=== PATIENT | male | born 1965 | race Caucasian/White ===

== ENCOUNTER → 2019-12-10 15:00 | Outpatient (CLI) | payer MEDICARE, MEDICAID, SELFPAY ==
--- NOTE | ~2019-12-10 | XR_ITS ---
. EXAMINATION: XR lumbar spine 6V w bending DATE: 12/10/2019 15:45 INDICATION: Low back pain. TECHNIQUE: 5 views of lumbar spine including flexion and extension views were obtained. COMPARISON: Lumbar spine radiographs 04/15/2016, CT abdomen and pelvis 06/30/2017 FINDINGS: There is 3 degrees levocurvature of thoracolumbar spine. There are changes of posterior fus ion procedure from T12 to L4 with pedicle screws in T12, L1, L3, and L4. There is a chronic compressi on fracture of L2 with strut graft between L1 and L3. Intervertebral disc heights are normal. There i s no abnormal motion between flexion and extension. There are endplate osteophytes at most levels. Th ere is multilevel mild facet joint osteoarthrosis. There is a filter in the inferior vena cava. IMPRESSION: 1. Posterior fusion procedure from T12 to L4 and anterior fusion procedure from L1 to L3. 2. Mild lumbar spondylosis. Reviewed, dictated and finalized at location A. MAKER
--- NOTE | ~2019-12-10 | XR_ITS ---
EXAMINATION: XR thoracic spine 2V EXAM DATE: 12/10/2019 15:45 INDICATION: Thoracic pain. TECHNIQUE: Frontal and lateral projections of the thoracic spine as well as lateral swimmers projecti on of the upper thoracic spine for interpretation. Comparison is made to prior examination from 016. FINDINGS: There is mild mid and lower thoracic disc disease. The vertebral bodies are aligned in the AP dimension. Paraspinal soft tissue is unremarkable. Thoracolumbar fusion hardware. There are no bon y erosions identified. IMPRESSION: Mild mid and lower thoracic disc disease. Reviewed, dictated and finalized at location A. K MAKER
--- NOTE | ~2019-12-10 | XR_ITS ---
EXAMINATION: XR knee RT 2V EXAM DATE: 12/10/2019 15:45 INDICATION: No known recent injury provided at this time. Pain of the knees bilaterally. TECHNIQUE: Right knee frontal and lateral projections. Comparison is made to prior examination from 01/11/2018. FINDINGS: There is mild right patellofemoral compartment primary osteoarthritis. There are no acute f ractures or dislocations identified. There is no subcutaneous gas. The soft tissue is unremarkable. There are no radiopaque foreign bodies. No joint effusion. IMPRESSION: Mild right patellofemoral compartment osteoarthritis. Reviewed, dictated and finalized at location A. RD PRESSMAN
--- NOTE | ~2019-12-10 | XR_ITS ---
EXAMINATION: XR knee LT 2V EXAM DATE: 12/10/2019 15:45 INDICATION: No known recent injury provided at this time. Pain of the left knee. TECHNIQUE: Left knee frontal and lateral projections. There is no prior study for comparison. FINDINGS: There is minimal tricompartmental left knee primary osteoarthritis. Proximal tibial bone i sland. There are no acute fractures or dislocations identified. There is no subcutaneous gas. The s oft tissue is unremarkable. There are no radiopaque foreign bodies. No joint effusion. IMPRESSION: Minimal left knee osteoarthritis. Reviewed, dictated and finalized at location A. OROLOGICAL OBSERVER
== END ==
PROVIDERS: PCP Internal Medicine; Visit Provider Nurse Practitioner Family
DX: M47.896 Other spondylosis, lumbar region (principal); Z98.1 Arthrodesis status; M51.24 Other intervertebral disc displacement, thoracic region; M17.0 Bilateral primary osteoarthritis of knee
CPT/HCPCS: 72070; 72114; 73560

== ENCOUNTER 2019-12-19 13:30 | Emergency (ER) | payer MEDICARE, MEDICAID, SELFPAY ==
[2019-12-19 14:36] VITALS: BP 154/86; PULSE 73; RESP 20; TEMP 36.5; O2SAT 98
--- NOTE | 2019-12-19 14:48 | ED.GENADULT ---
HPI - General Adult General Stated complaint: pain in left side of face Time Seen by Provider: 12/19/19 14:48 Source: patient and RN notes reviewed History of Present Illness HPI narrative: Patient is a 54-year-old male that presents the urgent care with complaints of left facial and neck pain. Patient states that he has had it for approximately 10 days. Patient states he did see his PCP who initially thought he had the flu due to some body aches. Patient states his flu was negative. Patient was then placed on antibiotics for strep throat in which he did not have. Patient states he did complete the antibiotics. Patient denies of any known rash but states that he does feel that his skin is itchy at times . Patient states that he feels that someone slapped him across the face . Patient denies any chest pain or shortness of breath. Denies of any radiation of the pain down the arm or back. No other acute complaints. No acute distress noted. Patient read the plan of care. Related Data Home Medications Medication Instructions Recorded Confirmed albuterol sulfate 90 mcg/actuation 2 puff INHALATION Q4-6H PRN gm 10/25/19 10/25/19 aerosol inhaler aspirin 81 mg PO DAILY 10/25/19 10/25/19 atorvastatin 80 mg tablet 80 mg PO DAILY 10/25/19 10/25/19 budesonide-formoterol HFA 160 2 puff INHALATION Q12H 10/25/19 10/25/19 mcg-4.5 mcg/actuation aerosol inhaler cyclobenzaprine 10 mg tablet 10 mg PO HS PRN 10/25/19 10/25/19 doxazosin 4 mg tablet 4 mg PO HS 10/25/19 10/25/19 fenofibrate nanocrystallized 145 mg PO DAILY 10/25/19 10/25/19 hydrocodone 5 mg-acetaminophen 325 1 tablet PO Q8H PRN 10/25/19 10/25/19 mg tablet icosapent ethyl 1 gram capsule 2 gm PO BID 10/25/19 10/25/19 insulin aspart U-100 100 unit/mL See Rx Instructions .ROUTE 10/25/19 10/25/19 (3 mL) subcutaneous pen .COMPLEX ml lisinopril 40 mg tablet 40 mg PO BID 10/25/19 10/25/19 spironolactone 25 mg PO DAILY 10/25/19 10/25/19 testosterone cypionate 200 mg/mL 200 mg IM WEEKLY ml 10/25/19 10/25/19 intramuscular oil ticagrelor 90 mg tablet 90 mg PO Q12H 10/25/19 10/25/19 liraglutide 0.6 mg/0.1 mL (18 mg/3 1.8 mg SUBCUT DAILY 11/05/19 mL) subcutaneous pen injector Allergies Allergy/AdvReac Type Severity Reaction Status Date / Time No Known Allergies Allergy Unknown Verified 12/19/19 15:03 Review of Systems Review of Systems: Narrative: CONSTITUTIONAL: Denies fever, chills, or sweats. EYES: Denies visual changes, redness, or discharge. ENT: Denies rhinorrhea, congestion, sore throat, or otalgia. CARDIOVASCULAR: Denies chest pain, palpitations, or edema. RESPIRATORY: Denies cough or dyspnea. GASTROINTESTINAL: Denies abdominal pain, nausea, vomiting, or diarrhea. GENITOURINARY: Denies dysuria or hematuria. SKIN: Denies rash or itching. MUSCULOSKELETAL: Denies back pain, joint pain, or myalgia. NEUROLOGIC: Reports of burning, itching, pain radiating from the left neck to the left face All other systems reviewed are negative, except as documented in HPI. PENDING SALE TO [facility] Past Medical History Medical History (Updated 12/19/19 @ 15:19 by FLEX Fuentes) Anxiety Bronchitis CAD (coronary artery disease) CHF (congestive heart failure) Chronic back pain COPD (chronic obstructive pulmonary disease) CVA (cerebral vascular accident) Depression Diverticulitis DVT (deep venous thrombosis) Emphysema of lung Heart attack x6 History of angina HTN (hypertension) Hyperlipidemia IDDM (insulin dependent diabetes mellitus) Kidney stones Mitral valve prolapse Pneumonia Presence of IVC filter Seizures Sleep apnea UTI (urinary tract infection) Surgical History Surgical History (Updated 10/25/19 @ 15:26 by Rupal Christianson) History of angioplasty History of back surgery L1 replacement, spinal fusion History of cardiac catheterization History of coronary artery stent placement History of knee surgery History of rhinoplasty History of shoulder surgery History o
--- NOTE | 2019-12-19 15:17 | ECG_ITS ---
Measurements Intervals [place] Rate: 74 P: 66 SD: 211 QRS: 37 QRSD: 117 T: 71 QT: 387 QTc: 430 Interpretive Statements SINUS RHYTHM WITH SINUS ARRHYTHMIA WITH FIRST DEGREE AV BLOCK POSSIBLE LEFT ATRIAL ENLARGEMENT INTRAVENTRICULAR CONDUCTION DELAY CANNOT RULE OUT SEPTAL INFARCT, AGE INDETERMINATE ABNORMAL ECG Electronically Signed On 12-19-2019 15:53:48 CAR TOP BOLTER by Satinder Eason D.O.
== END 2019-12-19 15:20 | disposition left against medical advice (07) ==
PROVIDERS: Emergency Provider Nurse Practitioner Family; PCP Internal Medicine
DX: G50.0 Trigeminal neuralgia (principal); F17.210 Nicotine dependence, cigarettes, uncomplicated; I11.0 Hypertensive heart disease with heart failure; I50.9 Heart failure, unspecified; J44.9 Chronic obstructive pulmonary disease, unspecified; Z86.73 Personal history of transient ischemic attack (TIA), and cerebral infarction without residual deficits; Z86.718 Personal history of other venous thrombosis and embolism; I25.110 Atherosclerotic heart disease of native coronary artery with unstable angina pectoris; I25.2 Old myocardial infarction; E78.5 Hyperlipidemia, unspecified; I34.1 Nonrheumatic mitral (valve) prolapse; G47.30 Sleep apnea, unspecified; Z95.5 Presence of coronary angioplasty implant and graft; I44.0 Atrioventricular block, first degree; R94.31 Abnormal electrocardiogram [ECG] [EKG]
CPT/HCPCS: 93005; 99213; G0463

== ENCOUNTER 2020-04-20 19:07 | Emergency (ER) | payer MEDICARE, MEDICAID, SELFPAY ==
[2020-04-20 19:12] VITALS: BP 121/80; PULSE 83; RESP 20; TEMP 36.6; O2SAT 98
--- NOTE | 2020-04-20 19:33 | ED.SKABFB ---
HPI - Skin/Abscess/Foreign Bdy General Chief complaint: Skin/Abscess/Foreign Body Stated complaint: spider bite on right wrist Time Seen by Provider: 04/20/20 19:26 Source: patient and RN notes reviewed Mode of arrival: ambulatory Limitations: no limitations History of Present Illness HPI narrative: Patient presents today complaining of a 4-day history of a bump to his right wrist, Possibly an insect bite. Yesterday it started causing some pain and itching in the dorsum of the right wrist. He has tried Tylenol and hydrocortisone without relief. Currently rates his pain 04/16. History of type 2 diabetes, COPD Related Data Home Medications Medication Instructions Recorded Confirmed albuterol sulfate 90 mcg/actuation 2 puff INHALATION Q4-6H PRN gm 10/25/19 04/20/20 aerosol inhaler aspirin 81 mg PO DAILY 10/25/19 04/20/20 fenofibrate nanocrystallized 145 mg PO DAILY 10/25/19 04/20/20 insulin aspart U-100 100 unit/mL See Rx Instructions .ROUTE 10/25/19 04/20/20 (3 mL) subcutaneous pen .COMPLEX ml lisinopril 40 mg tablet 40 mg PO BID 10/25/19 12/19/19 spironolactone 25 mg PO DAILY 10/25/19 12/19/19 testosterone cypionate 200 mg/mL 200 mg IM WEEKLY ml 10/25/19 12/19/19 intramuscular oil liraglutide 0.6 mg/0.1 mL (18 mg/3 1.2 mg SUBCUT DAILY 11/05/19 12/19/19 mL) subcutaneous pen injector budesonide-formoterol 2 puff INHALATION Q12H 04/20/20 04/20/20 cyclobenzaprine 10 mg PO HS 04/20/20 04/20/20 dapagliflozin [Farxiga] 10 mg PO DAILY 04/20/20 04/20/20 insulin glargine U-300 conc 100 unit SUBCUT DAILY 04/20/20 04/20/20 nitroglycerin 0.4 mg SUBLINGUAL Q5-15M PRN 04/20/20 04/20/20 sitagliptin 100 mg PO DAILY 04/20/20 04/20/20 ticagrelor 90 mg PO Q12H 04/20/20 04/20/20 Allergies Allergy/AdvReac Type Severity Reaction Status Date / Time No Known Allergies Allergy Unknown Verified 04/20/20 19:28 Review of Systems Review of Systems: Narrative: CONSTITUTIONAL: Denies body aches, fever, chills, or sweats. EYES: Denies visual changes, redness, or discharge. ENT: Denies rhinorrhea, congestion, sore throat, or otalgia. CARDIOVASCULAR: Denies chest pain, palpitations, or edema. RESPIRATORY: Denies cough or dyspnea. GASTROINTESTINAL: Denies abdominal pain, nausea, vomiting, or diarrhea. GENITOURINARY: Denies dysuria or hematuria. SKIN: Denies rash, itching. +Bump to right wrist MUSCULOSKELETAL: Denies back pain, joint pain, or myalgia. NEUROLOGIC: Denies headache, numbness, tingling, or weakness. PSYCH: Denies depression or anxiety. [facility] Past Medical History Medical History (Updated 04/20/20 @ 19:34 by Odilia Norris, [facility], ) Anxiety Bronchitis CAD (coronary artery disease) CHF (congestive heart failure) Chronic back pain COPD (chronic obstructive pulmonary disease) CVA (cerebral vascular accident) Depression Diverticulitis DVT (deep venous thrombosis) Emphysema of lung Heart attack x6 History of angina HTN (hypertension) Hyperlipidemia IDDM (insulin dependent diabetes mellitus) Kidney stones Mitral valve prolapse Pneumonia Presence of IVC filter Seizures Sleep apnea UTI (urinary tract infection) Surgical History Surgical History (Updated 10/25/19 @ 15:26 by Rupal Christianson) History of angioplasty History of back surgery L1 replacement, spinal fusion History of cardiac catheterization History of coronary artery stent placement History of knee surgery History of rhinoplasty History of shoulder surgery History of vascular surgery Social History Social History (Updated 10/25/19 @ 15:27 by Rupal Christianson) Smoking packs per day: 1 Smoking cigarettes per day: 20.0 Years smoked: 40 Smoking pack-years: 40.00 Smoking status: Current every day smoker Tobacco type: cigarettes Second hand tobacco smoke exposure: Yes Smoking end date: 02/26/19 Alcohol intake: never Substance use: current Substance use type: marijuana Other substance usage details: MEDICAL MARIJ[employer]NA CARD Sanya
== END 2020-04-20 19:36 | disposition home or self-care (01) ==
PROVIDERS: Emergency Provider Nurse Practitioner; PCP Internal Medicine
DX: S60.861A Insect bite (nonvenomous) of right wrist, initial encounter (principal); E11.9 Type 2 diabetes mellitus without complications; Z79.4 Long term (current) use of insulin; L08.9 Local infection of the skin and subcutaneous tissue, unspecified; W57.XXXA Bitten or stung by nonvenomous insect and other nonvenomous arthropods, initial encounter; F17.210 Nicotine dependence, cigarettes, uncomplicated; F12.90 Cannabis use, unspecified, uncomplicated; I25.10 Atherosclerotic heart disease of native coronary artery without angina pectoris; I11.0 Hypertensive heart disease with heart failure; I50.9 Heart failure, unspecified; I25.2 Old myocardial infarction; Z86.718 Personal history of other venous thrombosis and embolism
CPT/HCPCS: 99213; G0463

== ENCOUNTER 2020-05-13 16:24 | Outpatient (CLI) | payer MEDICARE, MEDICAID, SELFPAY ==
[2020-05-13 16:44] LABS: Basophils Absolute Auto 0.1 K/mm3 (0.0-0.1); Basophils Percent Auto 0.9 % (0.2-1.2); Eosinophils Absolute Auto 0.3 K/mm3 (0-0.3); Eosinophils Percent Auto 3.4 % (0-4.4); Hematocrit 42.5 % (42.0-52.0); Hemoglobin 13.9 g/dL (14.0-18.0); Immature Granulocyte Absolute 0.08 K/mm3 (0.00-0.031); Immature Granulocyte Percent A 0.9 % (0-0.5); Mean Corpuscular HGB Conc 32.7 g/dl (32-36); Mean Corpuscular Hemoglobin 27.3 pg (26-34); Mean Corpuscular Volume 83.5 fl (80-100); Mean Platelet Volume 9.3 fl (7.4-10.4); Monocytes Absolute Auto 0.7 K/mm3 (0.1-0.6); Monocytes Percent Auto 8.8 % (2.6-8.5); Neutrophils Absolute Auto 5.1 K/mm3 (1.3-6.7); Platelet Count Result 272 k/mm3 (150-375); Red Blood Count 5.09 M/mm3 (4.6-6.20); Red Cell Distribution Width 14.1 % (11.5-14.5); White Blood Count 8.5 K/mm3 (4.5-10.0)
[2020-05-13 16:56] LABS: Alanine Aminotransferase 21 U/L (4-50); Albumin Level 4.3 g/dL (3.5-5.1); Alkaline Phosphatase 47 U/L (38-126); Aspartate Amino Transferase 18 U/L (17-59); Bilirubin,Total 0.3 mg/dL (0.2-1.3); Blood Urea Nitrogen 29 mg/dL (9-20); Calcium 9.6 mg/dL (8.4-10.2); Carbon Dioxide 22 mmol/L (22-30); Chloride 106 mmol/L (98-107); Cholesterol 137 mg/dL (0-200); Estimated Glomerular Filt Rate 53; Glucose 208 mg/dL (75-110); HDL Direct 23 mg/dL; Potassium 4.7 mmol/L (3.4-5.0); Sodium 136 mmol/L (137-145); Triglycerides 505 mg/dL (<150)
[2020-05-13 16:58] LABS: Hemoglobin A1C 8.9 % (<5.7)
[2020-05-13 17:07] LABS: LDL Cholesterol Direct 55 mg/dL
[2020-05-13 17:14] LABS: Creatinine Urine 57.4 mg/dL
[2020-05-13 17:20] LABS: MALB Creatinine Ratio 40.8 mg/g (0-30); Microalbumin Urine Random 23.4 mg/L (0-16.7)
[2020-05-13 17:27] LABS: Thyroid Stimulating Hormone 0.471 uIU/mL (0.465-4.680)
== END 2020-05-13 16:25 | disposition home or self-care (01) ==
PROVIDERS: PCP Internal Medicine; Visit Provider Internal Medicine
DX: E11.42 Type 2 diabetes mellitus with diabetic polyneuropathy (principal); E78.5 Hyperlipidemia, unspecified; I10 Essential (primary) hypertension; Z79.4 Long term (current) use of insulin
CPT/HCPCS: 36415; 80053; 80061; 82043; 83036; 84443; 85025

== ENCOUNTER 2020-08-13 01:13 | Outpatient (CLI) | payer MEDICARE, SELFPAY ==
[2020-08-13 19:19] LABS: SARS-CoV-2 RNA PCR Negative
== END 2020-08-13 01:14 | disposition home or self-care (01) ==
LOC: ANHCOVIDDT 01:13
PROVIDERS: PCP Internal Medicine; Visit Provider Internal Medicine Gastroenterology
DX: Z01.812 Encounter for preprocedural laboratory examination (principal); Z11.59 Encounter for screening for other viral diseases
CPT/HCPCS: 87635; C9803; U0003

== ENCOUNTER 2020-08-15 01:07 | Day surgery (SDC) | payer MEDICARE, MEDICAID, SELFPAY ==
[2020-08-07 15:18] VITALS: BMI 32.1
[2020-08-15 12:37] VITALS: BP 122/80; PULSE 66; RESP 16; TEMP 36; O2SAT 99
[2020-08-15] MEDS: LACTATED RINGERS 1,000 ML 150 ML IV CONT (12:51)
--- NOTE | 2020-08-15 13:35 | WPDANESEPPF ---
Anes - Initial Pre Proc Eval Procedure: Operation Date: 08/15/20 13:45 Proposed Procedures p Esophagogastroduodenoscopy & Screening Colonoscopy - Abdulaziz Manzanares MD Date/Time: 08/15/20 13:35 Surgeon: Abdulaziz Manzanares MD Pre Op Diagnosis: Neoplasm Screening/ Gerd Patient Data Age: 55 Gender: M Height: 6 ft 2 in Weight: 113.6 kg Last Vital Signs Temp 96.8 F L 08/15/20 12:37 Pulse 66 08/15/20 12:37 Resp 16 08/15/20 12:37 BP 122/80 08/15/20 12:37 Pulse Ox 99 08/15/20 12:37 Allergies Allergy/AdvReac Type Severity Reaction Status Date / Time No Known Allergies Allergy Unknown Verified 08/15/20 12:36 Home Medications Medication Instructions Recorded Confirmed Type albuterol sulfate 90 mcg/actuation 2 puff INHALATION Q4-6H PRN gm 10/25/19 08/07/20 History aerosol inhaler aspirin 81 mg PO DAILY 10/25/19 08/07/20 History fenofibrate nanocrystallized 145 mg PO DAILY 10/25/19 08/07/20 History spironolactone 25 mg PO DAILY 10/25/19 08/07/20 History testosterone cypionate 200 mg/mL 100 mg IM WEEKLY ml 10/25/19 08/07/20 History intramuscular oil atorvastatin 80 mg tablet 80 mg PO DAILY #90 tablet 04/01/20 08/07/20 Rx doxazosin 4 mg tablet 4 mg PO HS #90 tablet 04/07/20 08/07/20 Rx cyclobenzaprine 10 mg PO HS 04/20/20 08/07/20 History nitroglycerin 0.4 mg SUBLINGUAL Q5-15M PRN 04/20/20 08/07/20 History ticagrelor 90 mg PO Q12H 04/20/20 08/07/20 History carvedilol 25 mg tablet 25 mg PO Q12H #180 tablet 05/16/20 08/07/20 Rx lisinopril 40 mg tablet 40 mg PO BID #180 tablet 05/23/20 08/07/20 Rx pregabalin 150 mg capsule 150 mg PO TID #270 cap 05/23/20 08/07/20 Rx insulin aspart U-100 100 unit/mL See Rx Instructions .ROUTE 05/30/20 08/07/20 Rx (3 mL) subcutaneous pen .COMPLEX #15 ml insulin glargine U-300 conc 300 100 unit SUBCUT DAILY #30 ml 06/30/20 08/07/20 Rx unit/mL (1.5 mL) subcutaneous pen semaglutide 7 mg tablet 7 mg PO DAILY #90 tablet 07/01/20 08/07/20 Rx amlodipine 10 mg tablet 10 mg PO DAILY #90 tablet 07/24/20 08/07/20 Rx icosapent ethyl 1 gram capsule 2 gm PO BID #360 cap 07/24/20 08/07/20 Rx metformin 1,000 mg tablet 1,000 mg PO BID #180 tablet 07/24/20 08/07/20 Rx venlafaxine 75 mg capsule,extended 75 mg PO DAILY #90 cap 07/24/20 08/07/20 Rx release 24 hr budesonide-formoterol HFA 160 See Rx Instructions .ROUTE 07/29/20 08/07/20 Rx mcg-4.5 mcg/actuation aerosol .COMPLEX #10.2 gm inhaler dapagliflozin 10 mg tablet See Rx Instructions .ROUTE 08/01/20 08/07/20 Rx .COMPLEX #90 tablet peg 3350-electrolytes 236 240 ml PO Q10M #4000 ml 08/01/20 08/07/20 Rx gram-22.74 gram-6.74 gram-5.86 gram solution omeprazole 40 mg capsule,delayed 40 mg PO DAILY #90 cap 08/11/20 Rx release Patient hx anesthesia problems: none Family hx anesthesia problems: none PMFSH Past Medical History Medical History Anxiety Bronchitis CAD (coronary artery disease) CHF (congestive heart failure) Chronic back pain COPD (chronic obstructive pulmonary disease) CVA (cerebral vascular accident) Depression Diverticulitis DVT (deep venous thrombosis) Emphysema of lung Heart attack x6 History of angina HTN (hypertension) Hyperlipidemia IDDM (insulin dependent diabetes mellitus) Kidney stones Mitral valve prolapse Pneumonia Presence of IVC filter Seizures Sleep apnea UTI (urinary tract infection) Surgical History Surgical History History of angioplasty History of back surgery L1 replacement, spinal fusion History of cardiac catheterization History of coronary artery stent placement History of knee surgery History of rhinoplasty History of shoulder surgery History of vascular surgery Family History Family History Mother Cerebrovascular accident, Onset Age: 68 Family history
--- NOTE | 2020-08-15 13:54 | PM.HPGS ---
History of Present Illness History of Present Illness Consent: Risks, benefits, and alternatives have been discussed and questions answered. Patient agrees to proceed with procedure. Chief complaint: Neoplasm Screening/ Gerd Narrative: Bruce Peralta is a 55 year old male with gerd, burping but improved after started using honey. Also diarrhea and needs screening colonoscopy. Review of Systems Constitutional: Constitutional: Denies headache(s) and Denies weakness Eyes: Eyes: Denies blurry vision ENT: Reports Normal hearing present, Denies headache(s) and Denies neck pain Cardiovascular: Cardiovascular: Denies chest pain and Denies dyspnea Respiratory: Respiratory: Denies dyspnea Gastrointestinal: Gastrointestinal: Reports no additional gastrointestinal complaints Genitourinary: Genitourinary: Denies dysuria Musculoskeletal: Musculoskeletal: Denies neck pain Integumentary/Breasts: Skin/Breast: Denies dry skin Neurologic: Reports Normal hearing present, Denies headache(s) and Denies weakness Psychiatric: Psychiatric: Denies anxiety Endocrine: Endocrine: Denies change in body appearance Hematologic/Lymphatic: Hematologic/Lymphatic: Denies easy bleeding Allergic/Immunologic: Allergic/Immunologic: Denies urticaria PMFSH Past Medical History Medical History Anxiety Bronchitis CAD (coronary artery disease) CHF (congestive heart failure) Chronic back pain COPD (chronic obstructive pulmonary disease) CVA (cerebral vascular accident) Depression Diverticulitis DVT (deep venous thrombosis) Emphysema of lung Heart attack x6 History of angina HTN (hypertension) Hyperlipidemia IDDM (insulin dependent diabetes mellitus) Kidney stones Mitral valve prolapse Pneumonia Presence of IVC filter Seizures Sleep apnea UTI (urinary tract infection) Surgical History Surgical History History of angioplasty History of back surgery L1 replacement, spinal fusion History of cardiac catheterization History of coronary artery stent placement History of knee surgery History of rhinoplasty History of shoulder surgery History of vascular surgery Family History Family History Mother Cerebrovascular accident, Onset Age: 68 Family history of mental disorder Depression Sibling Family history of diabetes mellitus in first degree relative Family history of obesity Cerebrovascular accident Family history of malignant neoplasm Family history of heart disease in male family member before age 55 Carcinoma of colon Family history of lung cancer Father Family history of heart disease in male family member before age 55 Family history of migraine headaches Cerebrovascular accident Family history of chronic obstructive pulmonary disease Family history of congestive heart failure Acute myocardial infarction, Onset Age: 69 Other Diabetes mellitus Family history of arthritis Family history of cardiovascular disease Family history of glaucoma Family history of lung disease Family history of osteoporosis Hypertension Social History Social History Smoking packs per day: 1 Smoking cigarettes per day: 20.0 Years smoked: 40 Smoking pack-years: 40.00 Smoking status: Current every day smoker Tobacco type: cigarettes Second hand tobacco smoke exposure: Yes Smoking end date: 02/26/19 Alcohol intake: former Substance use: current Substance use type: marijuana Other substance usage details: SMOKES CIGARETTES AND CANNABIS DAILY. Living arrangements: with family Gender identity (if verbalized by the patient): Male Sexual Orientation (if Verbalized by the Patient): Straight or Heterosexual Spiritual care concerns: No Agree to blood products: Yes
[2020-08-15 14:34] VITALS: BP 131/85; PULSE 67; RESP 19; O2SAT 99
[2020-08-15 14:38] LABS: Glucose Point of Care 98 (65-105)
[2020-08-15 14:44] VITALS: BP 136/91; PULSE 59; RESP 18; O2SAT 100
[2020-08-15 14:54] VITALS: BP 151/92; PULSE 56; RESP 19; O2SAT 100
== END 2020-08-15 15:08 | disposition home or self-care (01) ==
PROVIDERS: PCP Internal Medicine; Visit Provider Internal Medicine Gastroenterology
PROC: 0DJ08ZZ Inspection of Upper Intestinal Tract, Via Natural or Artificial Opening Endoscopic (ICD-10-PCS; CPT 43235; principal; 2020-08-15 13:45)
DX: Z12.11 Encounter for screening for malignant neoplasm of colon (principal); K57.30 Diverticulosis of large intestine without perforation or abscess without bleeding; K64.8 Other hemorrhoids; K21.9 Gastro-esophageal reflux disease without esophagitis; K30 Functional dyspepsia; I11.0 Hypertensive heart disease with heart failure; I50.9 Heart failure, unspecified; I25.2 Old myocardial infarction; E78.5 Hyperlipidemia, unspecified; E11.9 Type 2 diabetes mellitus without complications; I34.1 Nonrheumatic mitral (valve) prolapse; F41.8 Other specified anxiety disorders; I25.10 Atherosclerotic heart disease of native coronary artery without angina pectoris; G47.30 Sleep apnea, unspecified; J44.9 Chronic obstructive pulmonary disease, unspecified; Z79.4 Long term (current) use of insulin; Z79.82 Long term (current) use of aspirin; Z79.84 Long term (current) use of oral hypoglycemic drugs; Z86.718 Personal history of other venous thrombosis and embolism; Z95.5 Presence of coronary angioplasty implant and graft; F17.210 Nicotine dependence, cigarettes, uncomplicated; F12.90 Cannabis use, unspecified, uncomplicated; E66.9 Obesity, unspecified; Z68.32 Body mass index [BMI] 32.0-32.9, adult
CPT/HCPCS: 45380; 43239; 88305; J2704; J7120

== ENCOUNTER 2020-09-16 14:33 | Outpatient (CLI) | payer MEDICARE, MEDICAID, SELFPAY ==
--- NOTE | ~2020-09-16 | CT_ITS ---
EXAMINATION:CT lung screening DATE: 09/16/2020 15:35 INDICATION: Personal history of tobacco dependence. Current smoker with 30 pack year history. TECHNIQUE: Computed tomography (CT) of the chest was performed without intravenous contrast. Automate d exposure control and iterative reconstruction technique were employed. The dose-length product (DLP ) was 288.58 mGy-cm. COMPARISON: Chest CT 01/31/2015 FINDINGS: There is mild atelectasis bilaterally. No pleural effusion. The heart size is normal. No pe ricardial effusion. There are coronary artery calcifications. There is a filter in the inferior vena cava. There are changes of posterior fusion procedure in thoracolumbar spine. There is mild thoracic spondylosis. IMPRESSION: 1. Lung-RADS category 1: Negative. Continue annual screening with noncontrast low-dose chest CT in 12 months. Reviewed, dictated and finalized at location B. RTISING AGENCY MANAGER IMPRESSION: 1. Lung-RADS category 1: Negative. Continue annual screening with noncontrast l ow-dose chest CT in 12 months.
== END 2020-09-16 14:34 | disposition home or self-care (01) ==
PROVIDERS: PCP Internal Medicine; Visit Provider Internal Medicine
DX: Z12.2 Encounter for screening for malignant neoplasm of respiratory organs (principal); Z87.891 Personal history of nicotine dependence
CPT/HCPCS: G0297

== ENCOUNTER 2020-10-12 02:19 | Emergency (ER) | payer MEDICARE, MEDICAID, SELFPAY ==
--- NOTE | ~2020-10-12 | XR_ITS ---
XR chest 1V portable 10/12/2020 03:24 Indication: Shortness of breath Procedure: AP portable chest Comparison: Comparison to multiple prior studies sequentially, with oldest reviewed study dated 03/25. Findings: Heart size normal. Right lung clear. Left basilar atelectasis. No focal pneumonia, edema, p leural effusion or pneumothorax. No acute osseous abnormality. Impression: 1: Left basilar atelectasis. No significant change. Reviewed, dictated and finalized at location A. TENANCE MECHANIC TECHNICIAN Impression: 1: Left basilar atelectasis. No significant change.
[2020-10-12 02:20] VITALS: BP 150/81; PULSE 67; RESP 18; TEMP 35.8; O2SAT 97
--- NOTE | 2020-10-12 02:34 | ED.URI ---
HPI - URI/Sore Throat General Chief Complaint: Upper Respiratory Infection Stated Complaint: bronchitis or pneumonia Time Seen by Provider: 10/12/20 02:25 History of Present Illness HPI Narrative: 55 yo male w/ CAD, HTn, DM presnets to the ED with 5 days of cough, SOB, and pleuritic chest pain. He has sharp pain with coughing and breathing. No nausea, vomiting, fever. He does not believe that he has been exposed to COVID-19. Related Data Home Medications Medication Instructions Recorded Confirmed aspirin 81 mg PO DAILY 10/25/19 09/05/20 fenofibrate nanocrystallized 145 mg PO DAILY 10/25/19 09/05/20 spironolactone 25 mg PO DAILY 10/25/19 09/05/20 testosterone cypionate 200 mg/mL 100 mg IM WEEKLY ml 10/25/19 09/05/20 intramuscular oil cyclobenzaprine 10 mg PO HS 04/20/20 09/05/20 nitroglycerin 0.4 mg SUBLINGUAL Q5-15M PRN 04/20/20 09/05/20 ticagrelor 90 mg PO Q12H 04/20/20 09/05/20 Allergies Allergy/AdvReac Type Severity Reaction Status Date / Time No Known Allergies Allergy Unknown Verified 10/12/20 02:34 Review of Systems Review of Systems: All systems reviewed & are unremarkable except as noted in HPI and below Constitutional: Constitutional: Denies chills and Denies fever(s) ENT: Denies sore throat Cardiovascular: Cardiovascular: Reports chest pain and Denies radiating jaw, neck or arm pain Respiratory: Respiratory: Reports cough, Reports dyspnea and Reports wheezing Gastrointestinal: Gastrointestinal: Denies abdominal pain, Denies nausea and Denies vomiting Genitourinary: Genitourinary: Denies dysuria Musculoskeletal: Musculoskeletal: Denies back pain Neurologic: Denies dizziness and Denies weakness Psychiatric: Psychiatric: Reports anxiety PMFSH Past Medical History Medical History Anxiety Bronchitis CAD (coronary artery disease) CHF (congestive heart failure) Chronic back pain COPD (chronic obstructive pulmonary disease) CVA (cerebral vascular accident) Depression Diverticulitis DVT (deep venous thrombosis) Emphysema of lung Heart attack x6 History of angina HTN (hypertension) Hyperlipidemia IDDM (insulin dependent diabetes mellitus) Kidney stones Mitral valve prolapse Pneumonia Presence of IVC filter Seizures Sleep apnea UTI (urinary tract infection) Surgical History Surgical History History of angioplasty History of back surgery L1 replacement, spinal fusion History of cardiac catheterization History of coronary artery stent placement History of knee surgery History of rhinoplasty History of shoulder surgery History of vascular surgery Family History Family History Mother Cerebrovascular accident, Onset Age: 68 Family history of mental disorder Depression Sibling Family history of diabetes mellitus in first degree relative Family history of obesity Cerebrovascular accident Family history of malignant neoplasm Family history of heart disease in male family member before age 55 Carcinoma of colon Family history of lung cancer Father Family history of heart disease in male family member before age 55 Family history of migraine headaches Cerebrovascular accident Family history of chronic obstructive pulmonary disease Family history of congestive heart failure Acute myocardial infarction, Onset Age: 69 Other Diabetes mellitus Family history of arthritis Family history of cardiovascular disease Family history of glaucoma Family history of lung disease Family history of osteoporosis Hypertension Social History Social History Smoking packs per day: 1 Smoking cigarettes per day: 20.0 Years smoked: 40 Smoking pack-years: 40.00 Smoking status: Current every day smoker Tobacco type: cigarett
[2020-10-12 04:07] LABS: Anion Gap 12 mmol/L (8-16); Blood Urea Nitrogen 28 mg/dL (9-20); Calcium 8.8 mg/dL (8.4-10.2); Carbon Dioxide 21 mmol/L (22-30); Chloride 102 mmol/L (98-107); Estimated Glomerular Filt Rate > 60; Glucose 279 mg/dL (75-110); Potassium 4.2 mmol/L (3.4-5.0); Sodium 135 mmol/L (137-145)
[2020-10-12 04:17] LABS: Basophils Absolute Auto 0.1 K/mm3 (0.0-0.1); Basophils Percent Auto 1.1 % (0.2-1.2); Eosinophils Absolute Auto 0.3 K/mm3 (0-0.3); Eosinophils Percent Auto 4.1 % (0-4.4); Hematocrit 43.2 % (42.0-52.0); Hemoglobin 14.1 g/dL (14.0-18.0); Immature Granulocyte Absolute 0.11 K/mm3 (0.00-0.031); Immature Granulocyte Percent A 1.4 % (0-0.5); Lymphocytes Absolute Auto 2.87 K/mm3 (0.9-3.2); Lymphocytes Percent Auto 36.4 % (18.3-44.2); Mean Corpuscular HGB Conc 32.6 g/dl (32-36); Mean Corpuscular Hemoglobin 27.3 pg (26-34); Mean Corpuscular Volume 83.7 fl (80-100); Mean Platelet Volume 9.7 fl (7.4-10.4); Monocytes Absolute Auto 0.9 K/mm3 (0.1-0.6); Monocytes Percent Auto 11.8 % (2.6-8.5); Neutrophils Absolute Auto 3.6 K/mm3 (1.3-6.7); Neutrophils Percent Auto 45.2 % (45.5-73.1); Platelet Count Result 251 k/mm3 (150-375); Red Blood Count 5.16 M/mm3 (4.6-6.20); White Blood Count 7.9 K/mm3 (4.5-10.0)
[2020-10-12] MEDS: predniSONE 20 MG TABLET 60 MG PO (05:30)
[2020-10-12 06:08] VITALS: BP 128/72; PULSE 72; RESP 18; O2SAT 99
[2020-10-13 18:52] LABS: SARS-CoV-2 RNA PCR Negative
== END 2020-10-12 06:09 | disposition home or self-care (01) ==
PROVIDERS: Emergency Provider Emergency Medicine; PCP Internal Medicine
DX: J40 Bronchitis, not specified as acute or chronic (principal); Z20.828 Contact with and (suspected) exposure to other viral communicable diseases; I25.10 Atherosclerotic heart disease of native coronary artery without angina pectoris; I10 Essential (primary) hypertension; E78.5 Hyperlipidemia, unspecified; E11.9 Type 2 diabetes mellitus without complications; I34.1 Nonrheumatic mitral (valve) prolapse; I25.2 Old myocardial infarction; J43.9 Emphysema, unspecified; G47.30 Sleep apnea, unspecified; Z86.73 Personal history of transient ischemic attack (TIA), and cerebral infarction without residual deficits; Z86.718 Personal history of other venous thrombosis and embolism; Z87.440 Personal history of urinary (tract) infections; Z87.442 Personal history of urinary calculi; Z79.82 Long term (current) use of aspirin; Z95.5 Presence of coronary angioplasty implant and graft; F17.210 Nicotine dependence, cigarettes, uncomplicated; Z98.1 Arthrodesis status; Z79.02 Long term (current) use of antithrombotics/antiplatelets
CPT/HCPCS: 36415; 71045; 80048; 85025; 87635; 99283; C9803; J7512; U0003

== ENCOUNTER 2020-12-05 14:26 | Outpatient (CLI) | payer MEDICARE, MEDICAID, SELFPAY ==
[2020-12-05 14:48] LABS: Basophils Absolute Auto 0.1 K/mm3 (0.0-0.1); Eosinophils Absolute Auto 0.4 K/mm3 (0-0.3); Hematocrit 45.1 % (42.0-52.0); Hemoglobin 15.1 g/dL (14.0-18.0); Immature Granulocyte Absolute 0.18 K/mm3 (0.00-0.031); Immature Granulocyte Percent A 1.7 % (0-0.5); Lymphocytes Absolute Auto 2.85 K/mm3 (0.9-3.2); Lymphocytes Percent Auto 27.5 % (18.3-44.2); Mean Corpuscular HGB Conc 33.5 g/dl (32-36); Mean Corpuscular Hemoglobin 27.9 pg (26-34); Mean Corpuscular Volume 83.2 fl (80-100); Mean Platelet Volume 9.2 fl (7.4-10.4); Monocytes Absolute Auto 0.9 K/mm3 (0.1-0.6); Monocytes Percent Auto 8.3 % (2.6-8.5); Neutrophils Percent Auto 57.5 % (45.5-73.1); Platelet Count Result 273 k/mm3 (150-375); Red Blood Count 5.42 M/mm3 (4.6-6.20); Red Cell Distribution Width 14.3 % (11.5-14.5); White Blood Count 10.4 K/mm3 (4.5-10.0)
[2020-12-05 15:33] LABS: Vitamin D 25 Hydroxy 33.3 ng/mL
[2020-12-05 15:42] LABS: Creatinine Urine 104.6 mg/dL
[2020-12-05 15:47] LABS: MALB Creatinine Ratio 75.2 mg/g (0-30); Microalbumin Urine Random 78.7 mg/L (0-16.7)
[2020-12-05 15:55] LABS: Alanine Aminotransferase 29 U/L (4-50); Albumin Level 4.3 g/dL (3.5-5.1); Alkaline Phosphatase 57 U/L (38-126); Anion Gap 8 mmol/L (8-16); Aspartate Amino Transferase 23 U/L (17-59); Bilirubin,Total 0.5 mg/dL (0.2-1.3); Blood Urea Nitrogen 16 mg/dL (9-20); Calcium 9.5 mg/dL (8.4-10.2); Carbon Dioxide 26 mmol/L (22-30); Chloride 104 mmol/L (98-107); Cholesterol 101 mg/dL (0-200); Estimated Glomerular Filt Rate > 60; Glucose 119 mg/dL (75-110); HDL Direct 25 mg/dL; Potassium 4.7 mmol/L (3.4-5.0); Sodium 138 mmol/L (137-145); Triglycerides 325 mg/dL (<150)
[2020-12-05 16:16] LABS: Prostate Specific Antigen 0.6 ng/mL (< OR = 4.0)
[2020-12-05 16:30] LABS: Hemoglobin A1C 8.8 % (<5.7)
[2020-12-05 16:38] LABS: LDL Cholesterol Direct 39 mg/dL
== END 2020-12-05 14:27 | disposition home or self-care (01) ==
PROVIDERS: PCP Internal Medicine; Visit Provider Internal Medicine
DX: Z12.5 Encounter for screening for malignant neoplasm of prostate (principal); J44.9 Chronic obstructive pulmonary disease, unspecified; E11.42 Type 2 diabetes mellitus with diabetic polyneuropathy; Z51.81 Encounter for therapeutic drug level monitoring; Z79.4 Long term (current) use of insulin; F17.210 Nicotine dependence, cigarettes, uncomplicated; F33.1 Major depressive disorder, recurrent, moderate; E78.1 Pure hyperglyceridemia; E11.69 Type 2 diabetes mellitus with other specified complication; E78.2 Mixed hyperlipidemia
CPT/HCPCS: 36415; 80053; 80061; 82043; 82306; 83036; 84153; 85025; G0103

== ENCOUNTER 2021-01-09 17:35 | Emergency (ER) | payer MEDICARE, MEDICAID, SELFPAY ==
--- NOTE | ~2021-01-09 | XR_ITS ---
EXAMINATION: XR chest 1V portable INDICATION: Shortness of breath and fever TECHNIQUE: Portable AP chest at 1829 hours COMPARISON: 10/12/2020 FINDINGS: There are patchy opacities of the lung bases, left greater than right. There is no pleural effusion or pneumothorax. The cardiomediastinal silhouette is normal. IMPRESSION: 1. Patchy opacities of the lung bases, consistent with atelectasis versus pneumonia versus pulmonary edema. Reviewed, dictated and finalized at location A. MEL CUTTER MACHINE IMPRESSION: 1. Patchy opacities of the lung bases, consistent with atelectasis versus pneum onia versus pulmonary edema.
--- NOTE | 2021-01-09 17:59 | ECG_ITS ---
Measurements Intervals [place] Rate: 81 P: 61 MI: 244 QRS: -24 QRSD: 112 T: 79 QT: 347 QTc: 405 Interpretive Statements SINUS RHYTHM WITH FIRST DEGREE AV BLOCK INTRAVENTRICULAR CONDUCTION DELAY CANNOT RULE OUT SEPTAL INFARCT, AGE INDETERMINATE BORDERLINE ST-T WAVE ABNORMALITY- HIGH LATERAL LEADS ABNORMAL ECG Electronically Signed On 01-09-2021 19:59:00 [employer] by Satinder Eason D.O.
[2021-01-09 18:00] VITALS: BP 139/82; PULSE 81; RESP 22; TEMP 37.2; O2SAT 97
--- NOTE | 2021-01-09 18:21 | ED.SOB ---
HPI - SOB/Dyspnea General Chief Complaint: Shortness of Breath/Dyspnea Stated Complaint: bodyaches, sob, covid exposure Time Seen by Provider: 01/09/21 17:55 Source: patient Mode of arrival: ambulatory Limitations: no limitations History of Present Illness HPI Narrative: This is a 55-year-old male that presents to the emergency department for cold symptoms x3 days. Reports congestion, cough, body aches, and sore throat. Also reports some shortness of breath. Reports pleuritic chest pain. Denies fever or lower extremity edema. Related Data Home Medications Medication Instructions Recorded Confirmed aspirin 81 mg PO DAILY 10/25/19 11/27/20 fenofibrate nanocrystallized 145 mg PO DAILY 10/25/19 11/27/20 spironolactone 25 mg PO DAILY 10/25/19 11/27/20 testosterone cypionate 200 mg/mL 100 mg IM WEEKLY ml 10/25/19 11/27/20 intramuscular oil cyclobenzaprine 10 mg PO HS 04/20/20 11/27/20 nitroglycerin 0.4 mg SUBLINGUAL Q5-15M PRN 04/20/20 11/27/20 ticagrelor 90 mg PO Q12H 04/20/20 11/27/20 Allergies Allergy/AdvReac Type Severity Reaction Status Date / Time No Known Allergies Allergy Unknown Verified 11/27/20 11:16 Review of Systems Review of Systems: Narrative: CONSTITUTIONAL: Denies fever CARDIOVASCULAR: Reports chest pain. Denies edema. RESPIRATORY: Reports cough and dyspnea. GASTROINTESTINAL: Reports diarrhea. MUSCULOSKELETAL: Reports myalgia. All systems reviewed & are unremarkable except as noted in HPI and below PMFSH Past Medical History Medical History Anxiety Bronchitis CAD (coronary artery disease) CHF (congestive heart failure) Chronic back pain COPD (chronic obstructive pulmonary disease) CVA (cerebral vascular accident) Depression Diverticulitis DVT (deep venous thrombosis) Emphysema of lung Heart attack x6 History of angina HTN (hypertension) Hyperlipidemia IDDM (insulin dependent diabetes mellitus) Kidney stones Mitral valve prolapse Pneumonia Presence of IVC filter Seizures Sleep apnea UTI (urinary tract infection) Surgical History Surgical History History of angioplasty History of back surgery L1 replacement, spinal fusion History of cardiac catheterization History of coronary artery stent placement History of knee surgery History of rhinoplasty History of shoulder surgery History of vascular surgery Family History Family History Mother Cerebrovascular accident, Onset Age: 68 Family history of mental disorder Depression Sibling Family history of diabetes mellitus in first degree relative Family history of obesity Cerebrovascular accident Family history of malignant neoplasm Family history of heart disease in male family member before age 55 Carcinoma of colon Family history of lung cancer Father Family history of heart disease in male family member before age 55 Family history of migraine headaches Cerebrovascular accident Family history of chronic obstructive pulmonary disease Family history of congestive heart failure Acute myocardial infarction, Onset Age: 69 Other Diabetes mellitus Family history of arthritis Family history of cardiovascular disease Family history of glaucoma Family history of lung disease Family history of osteoporosis Hypertension Social History Social History Smoking packs per day: 1 Smoking cigarettes per day: 20.0 Years smoked: 40 Smoking pack-years: 40.00 Smoking status: Current some day smoker Tobacco type: cigarettes Second hand tobacco smoke exposure: Yes Smoking end date: 02/26/19 Alcohol intake: former Substance use: current Substance use type: marijuana Other substance usage details: SMOKES CIGARETTES AND CANNABIS DAILY. Gender identity (if
[2021-01-09 18:39] LABS: Basophils Percent Auto 0.4 % (0.2-1.2); Eosinophils Percent Auto 0.8 % (0-4.4); Hemoglobin 13.4 g/dL (14.0-18.0); Immature Granulocyte Absolute 0.04 K/mm3 (0.00-0.031); Immature Granulocyte Percent A 0.8 % (0-0.5); Lymphocytes Absolute Auto 1.49 K/mm3 (0.9-3.2); Lymphocytes Percent Auto 30.3 % (18.3-44.2); Mean Corpuscular HGB Conc 32.7 g/dl (32-36); Mean Corpuscular Hemoglobin 27.2 pg (26-34); Mean Corpuscular Volume 83.2 fl (80-100); Mean Platelet Volume 9.4 fl (7.4-10.4); Monocytes Absolute Auto 0.6 K/mm3 (0.1-0.6); Monocytes Percent Auto 11.6 % (2.6-8.5); Neutrophils Absolute Auto 2.8 K/mm3 (1.3-6.7); Neutrophils Percent Auto 56.1 % (45.5-73.1); Platelet Count Result 175 k/mm3 (150-375); Red Blood Count 4.93 M/mm3 (4.6-6.20); Red Cell Distribution Width 14.4 % (11.5-14.5); White Blood Count 4.9 K/mm3 (4.5-10.0)
[2021-01-09 18:48] LABS: INR 0.9; Prothrombin Time 12.8 Seconds (11.1-14.7)
[2021-01-09 18:49] LABS: Partial Thromboplastin Time 32.3 SECONDS (22.3-36.8)
[2021-01-09 18:52] LABS: Alanine Aminotransferase 31 U/L (4-50); Albumin Level 3.5 g/dL (3.5-5.1); Alkaline Phosphatase 46 U/L (38-126); Anion Gap 6 mmol/L (8-16); Aspartate Amino Transferase 31 U/L (17-59); Bilirubin,Total 0.3 mg/dL (0.2-1.3); Blood Urea Nitrogen 21 mg/dL (9-20); Calcium 8.5 mg/dL (8.4-10.2); Carbon Dioxide 28 mmol/L (22-30); Chloride 102 mmol/L (98-107); D Dimer 0.38 ug/mL (<0.48); Estimated Glomerular Filt Rate 57; Glucose 239 mg/dL (75-110); Potassium 4.4 mmol/L (3.4-5.0); Sodium 136 mmol/L (137-145)
[2021-01-09 19:00] LABS: NT Pro B Type Natriuretic Pept 31 PG/ML (5-100)
[2021-01-09 19:08] LABS: Lactate Dehydrogenase 372 U/L (313-618)
[2021-01-09 20:17] VITALS: BP 147/87; PULSE 82; RESP 16; TEMP 36.9; O2SAT 100
[2021-01-09] MEDS: OXYMETAZOLINE HCL 0.05% NAS 15 ML BTL (*BKC) 1 SPRAY NASAL (20:17)
[2021-01-10 08:27] LABS: SARS-CoV-2 RNA PCR Positive
== END 2021-01-09 20:18 | disposition home or self-care (01) ==
PROVIDERS: Physician Assistant; Emergency Provider Emergency Medicine; PCP Internal Medicine
DX: U07.1 COVID-19 (principal); J12.82 Pneumonia due to coronavirus disease 2019; I25.10 Atherosclerotic heart disease of native coronary artery without angina pectoris; I50.9 Heart failure, unspecified; I11.0 Hypertensive heart disease with heart failure; J43.9 Emphysema, unspecified; I25.2 Old myocardial infarction; E78.5 Hyperlipidemia, unspecified; E11.9 Type 2 diabetes mellitus without complications; G47.30 Sleep apnea, unspecified; Z87.442 Personal history of urinary calculi; Z87.440 Personal history of urinary (tract) infections; Z86.718 Personal history of other venous thrombosis and embolism; Z86.73 Personal history of transient ischemic attack (TIA), and cerebral infarction without residual deficits; Z95.5 Presence of coronary angioplasty implant and graft; Z98.1 Arthrodesis status; F17.210 Nicotine dependence, cigarettes, uncomplicated; I44.0 Atrioventricular block, first degree; I45.9 Conduction disorder, unspecified; R94.31 Abnormal electrocardiogram [ECG] [EKG]
CPT/HCPCS: 36415; 71045; 80053; 82728; 83615; 83880; 84484; 85025; 85380; 85610; 85730; 87804; 93005; 99284; A9270; C9803; U0003; U0005

== ENCOUNTER 2021-01-13 12:33 | Outpatient (RCR) | payer MEDICARE, MEDICAID, SELFPAY ==
--- NOTE | 2021-01-13 09:02 | PC.NURSE ---
Patient instructed on Bamlanivimab treatment with understanding stated to instruction. Patient checked pulse ox while he was on the phone and reading was 93%.
[2021-01-13] MEDS: diphenhydrAMINE HCl CAP 25 MG CAPSULE PO (13:40)
[2021-01-13] MEDS: ACETAMINOPHEN 325 MG TABLET 650 MG PO (13:40)
[2021-01-13] MEDS: FAMOTIDINE 20 MG TABLET PO (13:40)
[2021-01-13 13:44] VITALS: BP 108/66; PULSE 74; RESP 20; TEMP 36; O2SAT 94
[2021-01-13 15:14] VITALS: BP 108/60
--- NOTE | 2021-01-13 15:22 | PC.NURSE ---
Patient given written information on covid 19 and bamlanivimab with understanding stated.
--- NOTE | 2021-01-15 12:13 | PC.NURSE ---
Patient states he is feeling better after bamlanivimab treatment.
== END 2021-01-13 16:30 | disposition home or self-care (01) ==
LOC: AMCINF 12:33
PROVIDERS: PCP Internal Medicine; Visit Provider Internal Medicine Hematology & Oncology
DX: Z23 Encounter for immunization (principal); U07.1 COVID-19; J98.9 Respiratory disorder, unspecified; E11.9 Type 2 diabetes mellitus without complications
CPT/HCPCS: A9270; M0239; Q0239

== ENCOUNTER 2021-01-23 11:10 | Outpatient (CLI) | payer MEDICARE, MEDICAID, SELFPAY ==
--- NOTE | ~2021-01-23 | XR_ITS ---
EXAMINATION: XR chest 2V DATE: 01/23/2021 11:38 INDICATION: Pneumonia TECHNIQUE: PA and lateral views of the chest were obtained. COMPARISON: Chest radiograph dated 01/09/2021 FINDINGS: Interval progression of patchy peripheral predominant opacities in the bilateral mid and lower lung z ones consistent with worsening pneumonia which would include possible COVID pneumonia. No pleural eff usion or pneumothorax. The cardiomediastinal silhouette is normal. Partially visualized vertical zeyad and pedicle screw fixation for posterior spinal fusion extending caudally from the thoracolumbar junc tion. IMPRESSION: 1. Increasing bilateral patchy airspace opacities consistent with worsening pneumonia with distributi on and appearance suggestive of COVID pneumonia. Reviewed, dictated and finalized at location B. IMPRESSION: 1. Increasing bilateral patchy airspace opacities consistent with worsening pne umonia with distribution and appearance suggestive of COVID pneumonia.
== END 2021-01-23 11:11 | disposition home or self-care (01) ==
LOC: ANHIMG 11:14
PROVIDERS: PCP Internal Medicine; Visit Provider Internal Medicine
DX: J18.9 Pneumonia, unspecified organism (principal); R91.8 Other nonspecific abnormal finding of lung field
CPT/HCPCS: 71046

== ENCOUNTER 2021-04-09 15:05 | Outpatient (CLI) | payer MEDICARE, MEDICAID, SELFPAY ==
[2021-04-09 16:15] LABS: Hemoglobin 14.4 g/dL (14.0-18.0)
[2021-04-13 17:15] LABS: Estradiol, Ultrasensitive 23 pg/mL (< OR = 29)
[2021-04-14 14:43] LABS: Testosterone Total 400 ng/dL (250-1100)
== END 2021-04-09 15:06 | disposition home or self-care (01) ==
PROVIDERS: PCP Internal Medicine; Visit Provider Urology
DX: E29.1 Testicular hypofunction (principal)
CPT/HCPCS: 36415; 82670; 84403; 85014; 85018

== ENCOUNTER 2021-10-06 13:00 | Outpatient (CLI) | payer OTHER, SELFPAY ==
[2021-10-06 13:36] LABS: Hemoglobin A1C 7.2 % (<5.7)
[2021-10-06 13:39] LABS: Alanine Aminotransferase 24 U/L (4-50); Albumin Level 4.5 g/dL (3.5-5.1); Alkaline Phosphatase 50 U/L (38-126); Anion Gap 16 mmol/L (8-16); Aspartate Amino Transferase 24 U/L (17-59); Bilirubin,Total 0.7 mg/dL (0.2-1.3); Blood Urea Nitrogen 29 mg/dL (9-20); Calcium 9.8 mg/dL (8.4-10.2); Carbon Dioxide 16 mmol/L (22-30); Chloride 106 mmol/L (98-107); Cholesterol 146 mg/dL (0-200); Estimated Glomerular Filt Rate 42; Glucose 125 mg/dL (65-110); HDL Direct 34 mg/dL; Potassium 4.5 mmol/L (3.4-5.0); Sodium 138 mmol/L (137-145); Triglycerides 201 mg/dL (<150)
[2021-10-06 13:50] LABS: LDL Cholesterol Direct 79 mg/dL
[2021-10-06 13:52] LABS: Creatinine Urine 169.7 mg/dL
[2021-10-06 13:57] LABS: Microalbumin Urine Random 161.2 mg/L (0-16.7)
== END 2021-10-06 13:01 | disposition home or self-care (01) ==
PROVIDERS: PCP Internal Medicine; Visit Provider Internal Medicine
DX: E11.42 Type 2 diabetes mellitus with diabetic polyneuropathy (principal); I10 Essential (primary) hypertension; Z79.4 Long term (current) use of insulin; E78.1 Pure hyperglyceridemia; E78.5 Hyperlipidemia, unspecified
CPT/HCPCS: 36415; 80053; 80061; 82043; 83036

== ENCOUNTER 2021-10-21 10:20 | Outpatient (CLI) | payer OTHER, SELFPAY ==
--- NOTE | ~2021-10-21 | CT_ITS ---
EXAMINATION: CT lung screening DATE: 10/21/2021 10:57 INDICATION: Personal history of nicotine dependence, 50 pack year history TECHNIQUE: Computed tomography (CT) of the chest was performed without intravenous contrast. The dose -length product (DLP) was 268.24 mGy-cm. Automated exposure control and iterative reconstruction tech Beezag were employed. COMPARISON: 09/16/2020 FINDINGS: No suspicious pulmonary nodule is identified. The lungs are free of acute opacities. There is no pleural effusion or pneumothorax. No pathologically enlarged thoracic lymph nodes are identifie d. The heart size is normal. Calcified coronary artery atherosclerosis is noted. No pathologically en larged thoracic lymph nodes are identified. The heart size is normal. There are partially imaged horne ges of posterior thoracolumbar fusion procedure. Mild thoracic spondylosis is noted. IMPRESSION: 1. Lung-RADS category 1: Negative. Continue annual screening with noncontrast low-dose chest CT in 12 months. Reviewed, dictated and finalized at location A. TOR TECHNICIAN IMPRESSION: 1. Lung-RADS category 1: Negative. Continue annual screening with noncontrast l ow-dose chest CT in 12 months.
== END 2021-10-21 10:21 | disposition home or self-care (01) ==
LOC: ANHIMG 10:24
PROVIDERS: PCP Internal Medicine; Visit Provider Internal Medicine
DX: Z12.2 Encounter for screening for malignant neoplasm of respiratory organs (principal); Z87.891 Personal history of nicotine dependence
CPT/HCPCS: 71271

== ENCOUNTER 2022-02-18 14:21 | Outpatient (CLI) | payer OTHER, SELFPAY ==
[2022-02-18 14:49] LABS: Basophils Absolute Auto 0.1 K/mm3 (0.0-0.1); Basophils Percent Auto 1.1 % (0.2-1.2); Eosinophils Absolute Auto 0.3 K/mm3 (0-0.3); Eosinophils Percent Auto 3.8 % (0-4.4); Hematocrit 45.8 % (42.0-52.0); Hemoglobin 14.7 g/dL (14.0-18.0); Immature Granulocyte Absolute 0.07 K/mm3 (0.00-0.031); Immature Granulocyte Percent A 0.9 % (0-0.5); Lymphocytes Absolute Auto 2.43 K/mm3 (0.9-3.2); Lymphocytes Percent Auto 30.5 % (18.3-44.2); Mean Corpuscular HGB Conc 32.1 g/dl (32-36); Mean Corpuscular Hemoglobin 27.8 pg (26-34); Mean Corpuscular Volume 86.7 fl (80-100); Mean Platelet Volume 9.2 fl (7.4-10.4); Monocytes Absolute Auto 0.7 K/mm3 (0.1-0.6); Monocytes Percent Auto 8.3 % (2.6-8.5); Neutrophils Absolute Auto 4.4 K/mm3 (1.3-6.7); Neutrophils Percent Auto 55.4 % (45.5-73.1); Platelet Count Result 259 k/mm3 (150-375); Red Blood Count 5.28 M/mm3 (4.6-6.20); Red Cell Distribution Width 13.9 % (11.5-14.5)
[2022-02-18 15:00] LABS: Alanine Aminotransferase 21 U/L (4-50); Albumin Level 4.6 g/dL (3.5-5.1); Alkaline Phosphatase 49 U/L (38-126); Anion Gap 11 mmol/L (8-16); Aspartate Amino Transferase 21 U/L (17-59); Bilirubin,Total 0.2 mg/dL (0.2-1.3); Blood Urea Nitrogen 21 mg/dL (9-20); Calcium 9.4 mg/dL (8.4-10.2); Carbon Dioxide 18 mmol/L (22-30); Chloride 109 mmol/L (98-107); Cholesterol 153 mg/dL (0-200); Estimated Glomerular Filt Rate > 60; Glucose 166 mg/dL (65-110); HDL Direct 31 mg/dL; Potassium 4.8 mmol/L (3.4-5.0); Sodium 138 mmol/L (137-145); Triglycerides 268 mg/dL (<150)
[2022-02-18 15:02] LABS: Creatinine Urine 51.2 mg/dL
[2022-02-18 15:03] LABS: Hemoglobin A1C 8.1 % (<5.7)
[2022-02-18 15:07] LABS: MALB Creatinine Ratio 30.3 mg/g (0-30); Microalbumin Urine Random 15.5 mg/L (0-16.7)
[2022-02-18 15:15] LABS: LDL Cholesterol Direct 75 mg/dL
[2022-02-18 15:30] LABS: Prostate Specific Antigen 0.6 ng/mL (< OR = 4.0)
[2022-02-18 15:34] LABS: Thyroid Stimulating Hormone 0.374 uIU/mL (0.465-4.680)
[2022-02-18 15:41] LABS: Vitamin D 25 Hydroxy 37.4 ng/mL
== END 2022-02-18 14:22 | disposition home or self-care (01) ==
PROVIDERS: PCP Internal Medicine; Visit Provider Internal Medicine
DX: Z12.5 Encounter for screening for malignant neoplasm of prostate (principal); I25.10 Atherosclerotic heart disease of native coronary artery without angina pectoris; N17.9 Acute kidney failure, unspecified; Z98.61 Coronary angioplasty status; I10 Essential (primary) hypertension; E55.9 Vitamin D deficiency, unspecified; F33.1 Major depressive disorder, recurrent, moderate; Z86.73 Personal history of transient ischemic attack (TIA), and cerebral infarction without residual deficits; E78.5 Hyperlipidemia, unspecified; E11.42 Type 2 diabetes mellitus with diabetic polyneuropathy; Z51.81 Encounter for therapeutic drug level monitoring; Z79.4 Long term (current) use of insulin
CPT/HCPCS: 36415; 80053; 80061; 82043; 82306; 83036; 84153; 84443; 85025; G0103

== ENCOUNTER 2022-03-13 21:08 | Observation (INO) | payer OTHER, SELFPAY ==
--- NOTE | ~2022-03-13 | XR_ITS ---
EXAMINATION: XR chest 1V portable INDICATION: Chest pain TECHNIQUE: Portable AP chest at 1010 hours COMPARISON: 01/23/2021 FINDINGS: The lungs are free acute opacities. There is no pleural effusion or pneumothorax. The cardi omediastinal silhouette is normal. IMPRESSION: 1. No acute cardiopulmonary abnormality. Reviewed, dictated and finalized at location A.
--- NOTE | ~2022-03-13 | NM_ITS ---
EXAMINATION: NM nader stress w perfusion DATE: 03/15/2022 12:34 INDICATION: Chest pain TECHNIQUE: Rest images were obtained following intravenous administration of 10.2 mCi Tc99m tetrofosm in (Myoview). The patient was infused intravenously with Lexiscan (Regadenoson). Then, 32.1 mCi Tc99m tetrofosmin (Myoview) was administered intravenously, and stress images were obtained. Data was bryce nstructed into short axis and horizontal and vertical long axis SPECT images. Gated SPECT images were also obtained. COMPARISON: None. FINDINGS: There is no definite reversible or fixed perfusion abnormality to suggest ischemia or infar ction. There is normal left ventricular chamber size, wall motion and ejection fraction. Left ventri cular ejection fraction measures >70%. IMPRESSION: 1. Normal myocardial perfusion at rest and during stress. 2. Left ventricular ejection fraction measuring >70%. Reviewed, dictated and finalized at location A.
[2022-03-13 21:09] VITALS: BP 105/64; PULSE 63; RESP 17; TEMP 36.2; O2SAT 95
--- NOTE | 2022-03-13 21:29 | ED.CHESTPAIN ---
HPI - Chest Pain General Chief Complaint: Chest Pain <Josefina Yip MD - Last Filed: 03/13/22 22:06> Stated Complaint: chest pains and extreme fatigue <Josefina Yip MD - Last Filed: 03/13/22 22:06> Time Seen by Provider: 03/13/22 21:22 <Josefina Yip MD - Last Filed: 03/13/22 22:06> Source: patient and family <Josefina Yip MD - Last Filed: 03/13/22 22:06> Mode of arrival: ambulatory <Josefina Yip MD - Last Filed: 03/13/22 22:06> Limitations: no limitations <Josefina Yip MD - Last Filed: 03/13/22 22:06> History of Present Illness HPI narrative: Patient is 57 years old white male presented to the ED with chest pain over the last 2 days, constant, wake up with it yesterday morning, worse with activity, better if he laid down on the left side. He denies any fever, chills, nausea, vomiting, radiation of pain, shortness of breath. History of diabetes, hypertension, hyperlipidemia, COPD, last time was seen by a mold operator 5 months ago. Currently on aspirin and Brilinta, chest pain is 4 out of 10 at this time. Patient did not try nitro because causing him severe headache. He he usually get Dilaudid with nitroglycerin when he comes to the emergency room. <Josefina Yip MD - Last Filed: 03/13/22 22:06> Related Data Home Medications: Home Medications Medication Instructions Recorded Confirmed aspirin 81 mg PO DAILY 10/25/19 02/05/22 fenofibrate nanocrystallized 145 mg PO DAILY 10/25/19 02/05/22 testosterone cypionate 200 mg/mL 100 mg IM WEEKLY ml 10/25/19 02/05/22 intramuscular oil cyclobenzaprine 10 mg PO HS 04/20/20 02/05/22 ticagrelor 90 mg PO Q12H 04/20/20 02/05/22 <Josefina Yip MD - Last Filed: 03/13/22 22:06> Allergies/Adverse Reactions: Allergies Allergy/AdvReac Type Severity Reaction Status Date / Time No Known Allergies Allergy Unknown Verified 03/13/22 21:08 <Josefina Yip MD - Last Filed: 03/13/22 22:06> Review of Systems Review of Systems: CONSTITUTIONAL: Denies fever, chills, or sweats. EYES: Denies visual changes, redness, or discharge. ENT: Denies rhinorrhea, congestion, sore throat, or otalgia. CARDIOVASCULAR: Denies chest pain, palpitations, or edema. RESPIRATORY: Denies cough or dyspnea. GASTROINTESTINAL: Denies abdominal pain, nausea, vomiting, or diarrhea. GENITOURINARY: Denies dysuria or hematuria. SKIN: Denies rash or itching. MUSCULOSKELETAL: Denies back pain, joint pain, or myalgia. NEUROLOGIC: Denies headache, numbness, or weakness. PSYCHIATRIC: Denies anxiety or depression. <Josefina Yip MD - Last Filed: 03/13/22 22:06> [facility] Past Medical History Medical History: Medical History Anxiety Bronchitis CAD (coronary artery disease) CHF (congestive heart failure) Chronic back pain COPD (chronic obstructive pulmonary disease) CVA (cerebral vascular accident) Depression Diverticulitis DVT (deep venous thrombosis) Emphysema of lung Heart attack x6 History of angina HTN (hypertension) Hyperlipidemia IDDM (insulin dependent diabetes mellitus) Kidney stones Mitral valve prolapse Pneumonia Presence of IVC filter Seizures Sleep apnea UTI (urinary tract infection) <Josefina Yip MD - Last Filed: 03/13/22 22:06> Surgical History Surgical History: Surgical History History of angioplasty History of back surgery L1 replacement, spinal fusion History of cardiac catheterization History of coronary artery stent placement History of knee surgery History of rhinoplasty History of shoulder surgery History of vascular surgery <Josefina Yip MD - Last Filed: 03/13/22 22:06> Family History Family History: Family History Mother Cerebrovascular accident, Onset Age: 68 Family history of mental disorder Depression Sibling Family history
--- NOTE | 2022-03-13 21:47 | ECG_ITS ---
Measurements Intervals [place] Rate: 51 P: [place]: 0 QRS: 24 QRSD: 122 T: 59 QT: 412 QTc: 383 Interpretive Statements SINUS RHYTHM WITH 2ND DEGREE AV BLOCK, MOBITZ TYPE II CANNOT RULE OUT SEPTAL INFARCT, AGE INDETERMINATE BASELINE ARTIFACT- I, III, AVR, V4 ABNORMAL ECG Electronically Signed On 03-15-2022 16:48:23 CDT by Satinder Eason D.O.
[2022-03-13] MEDS: ASPIRIN 81 MG CHEWABLE TABLET 324 MG PO (21:54)
[2022-03-13] MEDS: ONDANSETRON INJ 4 MG/2 ML VIAL IV PUSH (21:54)
[2022-03-13] MEDS: MORPHINE SULFATE (*CRX) 4 MG/ML INJ IV PUSH ×2 (21:54→23:20)
[2022-03-13 21:55] VITALS: O2SAT 96
[2022-03-13 21:57] LABS: Basophils Absolute Auto 0.1 K/mm3 (0.0-0.1); Basophils Percent Auto 1.3 % (0.2-1.2); Eosinophils Absolute Auto 0.4 K/mm3 (0-0.3); Eosinophils Percent Auto 4.9 % (0-4.4); Hematocrit 43.4 % (42.0-52.0); Hemoglobin 13.9 g/dL (14.0-18.0); Immature Granulocyte Absolute 0.06 K/mm3 (0.00-0.031); Immature Granulocyte Percent A 0.8 % (0-0.5); Lymphocytes Absolute Auto 2.55 K/mm3 (0.9-3.2); Lymphocytes Percent Auto 35.9 % (18.3-44.2); Mean Corpuscular Hemoglobin 27.7 pg (26-34); Mean Corpuscular Volume 86.6 fl (80-100); Mean Platelet Volume 9.8 fl (7.4-10.4); Monocytes Absolute Auto 0.7 K/mm3 (0.1-0.6); Monocytes Percent Auto 9.4 % (2.6-8.5); Neutrophils Absolute Auto 3.4 K/mm3 (1.3-6.7); Neutrophils Percent Auto 47.7 % (45.5-73.1); Platelet Count Result 278 k/mm3 (150-375); Red Blood Count 5.01 M/mm3 (4.6-6.20); Red Cell Distribution Width 13.7 % (11.5-14.5); White Blood Count 7.1 K/mm3 (4.5-10.0)
[2022-03-13 22:07] LABS: Alanine Aminotransferase 17 U/L (4-50); Albumin Level 4.3 g/dL (3.5-5.1); Alkaline Phosphatase 43 U/L (38-126); Anion Gap 8 mmol/L (8-16); Aspartate Amino Transferase 22 U/L (17-59); Bilirubin,Total 0.1 mg/dL (0.2-1.3); Blood Urea Nitrogen 42 mg/dL (9-20); Carbon Dioxide 23 mmol/L (22-30); Chloride 105 mmol/L (98-107); Estimated CRCL calculation 81 ml/min; Estimated Glomerular Filt Rate > 60; Glucose 261 mg/dL (65-110); Potassium 4.5 mmol/L (3.4-5.0); Sodium 136 mmol/L (137-145)
[2022-03-13 22:09] LABS: Partial Thromboplastin Time 29.1 SECONDS (22.3-36.8); Prothrombin Time 13.2 Seconds (11.1-14.7)
[2022-03-13 22:19] LABS: NT Pro B Type Natriuretic Pept 25 pg/mL (5-100); Troponin I 0.019 ng/mL (0.000-0.034)
[2022-03-13] MEDS: PREGABALIN (*CRX) 75 MG CAPSULE 150 MG PO (23:19)
--- NOTE | 2022-03-13 23:20 | PM.IMHP ---
H&P: HPI History of Present Illness Date/Time: 03/13/22 23:20 Chief Complaint: Chest pain. Narrative: This is a 57-year-old male with past medical history significant for coronary artery disease status post stent placement, COPD/emphysema, tobacco dependence, hypertension, dyslipidemia, type 2 diabetes mellitus insulin dependent, gastroesophageal reflux disease. Patient presents to the emergency room due to chest pain there is localized to the retrosternal area nonradiating, pain is constant, denies any diaphoresis, dizziness, but has had shortness of breath decreased stamina bilateral lower extremity ankle edema and pedal edema cough nonproductive denies any fevers, chills rigors, chills, no nausea, no vomiting, no abdominal pain, no diarrhea, no syncope, no near syncope. Preliminary workup has been essentially nonrevealing. Patient is being admitted for further evaluation management and treatment. Review of Systems Review of Systems: Retrosternal chest pain, decreased stamina, shortness of breath, pedal edema. Constitutional: Constitutional: Denies chills, Denies fatigue, Denies fever(s) and Denies night sweats Eyes: Eyes: Denies change in vision ENT: Denies dysphagia, Denies vertigo, Denies nasal congestion, Denies nasal discharge, Denies nasal obstruction and Denies odynophagia Cardiovascular: Cardiovascular: Reports chest pain, Reports chest pain at rest, Reports pedal edema, Denies irregular heart rhythm, Denies claudication, Denies radiating jaw, neck or arm pain, Denies palpitations, Reports dyspnea on exertion and Reports orthopnea Respiratory: Respiratory: Denies change in phlegm color, Denies chest congestion, Reports cough, Denies excessive phlegm production and Denies wheezing Gastrointestinal: Gastrointestinal: Denies abdominal pain, Denies dyspepsia, Denies heartburn, Denies nausea and Denies vomiting Genitourinary: Genitourinary: Denies dysuria Musculoskeletal: Musculoskeletal: Reports back pain Integumentary/Breasts: Skin/Breast: Denies rash Neurologic: Denies focal weakness and Denies Sensory deficit (Neuro) Psychiatric: Psychiatric: Reports no additional psychiatric complaints and Reports as per HPI Endocrine: Endocrine: Denies cold intolerance, Denies flushing, Denies heat intolerance, Denies polyphagia, Denies polydipsia and Denies palpitations Hematologic/Lymphatic: Hematologic/Lymphatic: Reports no additional hematologic/lymphatic complaints and Reports as per HPI Allergic/Immunologic: Allergic/Immunologic: Reports no additional allergic/immunologic complaints and Reports as per HPI [facility] Past Medical History Medical History (Updated 03/14/22 @ 05:13 by Riley Lew MD) Anxiety Bronchitis CAD (coronary artery disease) CHF (congestive heart failure) Chronic back pain COPD (chronic obstructive pulmonary disease) CVA (cerebral vascular accident) Depression Diverticulitis DVT (deep venous thrombosis) Emphysema of lung Heart attack x6 History of angina HTN (hypertension) Hyperlipidemia IDDM (insulin dependent diabetes mellitus) Kidney stones Mitral valve prolapse Pneumonia Presence of IVC filter Seizures Sleep apnea UTI (urinary tract infection) Surgical History Surgical History History of angioplasty History of back surgery L1 replacement, spinal fusion History of cardiac catheterization History of coronary artery stent placement History of knee surgery History of rhinoplasty History of shoulder surgery History of vascular surgery Family History Family History Mother Depression Family history of mental disorder Cerebrovascular accident, Onset Age: 68 Family history of arthritis Sibling Family history of heart disease in male family member before age 55 Family history of malignant neoplasm Family history of lung cancer Family history of obesity Carcino
[2022-03-14] VITALS (25 sets, daily range): BP systolic 103–131; BP diastolic 68–81; PULSE 55–79; RESP 16–20; TEMP 36.1–36.8; O2SAT 96–100; BMI 32.6
[2022-03-14 00:34] LABS: NT Pro B Type Natriuretic Pept 23 pg/mL (5-100)
[2022-03-14] MEDS: ENOXAPARIN 120 MG/0.8 ML SYRINGE 110 MG SUB-Q ×3 (00:41→22:02)
--- NOTE | 2022-03-14 01:23 | ADMGEN ---
This patient, Bruce Peralta, was admitted to IMU Room 202-01 on 03/14/22 at 0124. Patient/family oriented to hospital policies and general routines including ID bracelet, bed and alarms, visiting hours, pain management, procedures, bathroom and other care routines, personal items, smoking policy, room service/diet, and visiting hours. Information on how to activate the Rapid Response Team has been discussed. Patient/Family are encouraged to report perceived risks to care and to ask questions if they do not understand what they are told or what they should do.
[2022-03-14 01:24] LABS: Troponin I 0.016 ng/mL (0.000-0.034)
[2022-03-14] MEDS: ALBUTEROL SULFATE NEB 2.5 MG/0.5 ML INH INHALATION ×4 (02:39→19:48)
[2022-03-14] MEDS: IPRATROPIUM BR 0.02% INH SOLN 0.5 MG/2.5 ML VIAL INHALATION ×4 (02:39→19:48)
[2022-03-14] MEDS: MORPHINE SULFATE (*CRX) 4 MG/ML INJ IV PUSH ×7 (02:47→22:04)
[2022-03-14] MEDS: ASPIRIN 81 MG CHEWABLE TABLET PO (08:57)
[2022-03-14] MEDS: amLODIPine BESYLATE 5 MG TABLET 10 MG PO (10:16)
[2022-03-14] MEDS: INSULIN ASPART (*BKC) 100 UNITS/ML SUB-Q ×3 (10:17→18:27)
[2022-03-14] MEDS: PREGABALIN (*CRX) 75 MG CAPSULE 150 MG PO ×2 (10:17→18:28)
[2022-03-14] MEDS: SPIRONOLACTONE 25 MG TABLET PO (10:18)
[2022-03-14] MEDS: ASPIRIN 81 MG ENTERIC TABLET PO (10:19)
[2022-03-14] MEDS: VENLAFAXINE HCL XR 37.5 MG CAP PO (10:19)
[2022-03-14] MEDS: ATORVASTATIN 40 MG TABLET 80 MG PO (10:19)
[2022-03-14] MEDS: carvediloL 25 MG TABLET PO ×2 (10:20→22:01)
--- NOTE | 2022-03-14 10:20 | PM.IMPN ---
Progress Note: A&P Assessment and Plan (1) Chest pain: Code(s): R07.9 - Chest pain, unspecified Status: Acute Assessment and Plan: Improved with nitro but patient is not taking nitro due to severe headache Continue tele monitor Reviewed troponin EKG reviewed Cardiology consult Probable coronary artery disease stable angina versus esophageal source versus pericarditis versus pleurisy (2) CAD (coronary artery disease): Code(s): I25.10 - Atherosclerotic heart disease of [place] coronary artery without angina pectoris Status: Acute Assessment and Plan: Pending cardiology evaluation (3) COPD (chronic obstructive pulmonary disease): Qualifiers: COPD type: unspecified COPD Qualified Code(s): J44.9 - Chronic obstructive pulmonary disease, unspecified Code(s): J44.9 - Chronic obstructive pulmonary disease, unspecified Status: Acute Assessment and Plan: Stable continue home medication (4) IDDM (insulin dependent diabetes mellitus): Code(s): E11.9 - Type 2 diabetes mellitus without complications; Z79.4 - senior living (current) use of insulin Status: Acute Assessment and Plan: Continue insulin Carb consistent diet Accu-Cheks AC and HS (5) Tobacco use: Code(s): Z72.0 - Tobacco use Status: Acute Assessment and Plan: Counseling (6) Type 2 diabetes mellitus with diabetic polyneuropathy, with long-term current use of insulin: Code(s): E11.42 - Type 2 diabetes mellitus with diabetic polyneuropathy; Z79.4 - roasterman (current) use of insulin Status: Acute Assessment and Plan: As above (7) Peripheral autonomic neuropathy: Code(s): G90.9 - Disorder of the autonomic nervous system, unspecified Status: Acute Assessment and Plan: Monitor (8) GERD (gastroesophageal reflux disease): Code(s): K21.9 - Gastro-esophageal reflux disease without esophagitis Status: Acute Assessment and Plan: Continue PPI Subjective Date/time seen: 03/14/22 10:20 Interval history: his is a 57-year-old male with past medical history significant for coronary artery disease status post stent placement, COPD/emphysema, tobacco dependence, hypertension, dyslipidemia, type 2 diabetes mellitus insulin dependent, gastroesophageal reflux disease. Patient presents to the emergency room due to chest pain there is localized to the retrosternal area nonradiating, pain is constant, denies any diaphoresis, dizziness, but has had shortness of breath decreased stamina bilateral lower extremity ankle edema pedal edema cough nonproductive. According to the patient chest pain improved with nitro but patient is not taking nitro because of severe headache also his chest pain is worsening with activity. Patient has another episode of chest pain overnight required IV morphine. Patient feels weak still complaining of chest pain intermittent Patient denies fever headache fever or chills I am seeing the patient for chest pain Exam Narrative: Alert Chest no wheeze crackles Abdomen nontender nondistended CVS S1 + S2 Negative Lower extremities edema Objective Data Vital Signs Vital Signs: Vital Signs - 24 hr 03/13/22 21:09 03/13/22 21:55 03/14/22 01:12 Temperature 97.1 F L Pulse Rate 63 62 Respiratory Rate 17 17 Blood Pressure 105/64 121/81 Pulse Oximetry 95 96 97 03/14/22 01:27 03/14/22 01:30 03/14/22 01:35 Temperature 97.4 F L Pulse Rate 66 79 79 Respiratory Rate 20 20 Blood Pressure 103/75 Pulse Oximetry 96 96 03/14/22 02:00 03/14/22 02:39 03/14/22 02:48 Temperature Pulse Rate 64 61 62 Respiratory Rate 20 20 Blood Pressure Pulse Oximetry 97 03/14/22 04:00 03/14/22 05:24 03/14/22 07:54 Temperature 97 F L Pulse Rate 63 62 67 Respiratory Rate 20 20 Blood Pressure 126/71 Pulse Oximetry 99 03/14/22 07:55 03/14/22 08:00 03/14/22 08:01 Temperature 98.2 F P
[2022-03-14] MEDS: FUROSEMIDE INJ 40 MG/4 ML VIAL IV PUSH (10:21)
[2022-03-14] MEDS: FENOFIBRATE NANOCRYSTALLIZED 145 MG TABLET PO (10:21)
[2022-03-14] MEDS: PANTOPRAZOLE 40 MG TABLET PO ×2 (10:22→16:35)
[2022-03-14] MEDS: lisinopriL 20 MG TABLET 40 MG PO ×2 (10:22→16:34)
[2022-03-14] MEDS: OMEGA 3 POLYUNSAT FATTY ACIDS 1 GM CAP 2 GM PO ×2 (10:23→16:34)
[2022-03-14] MEDS: TICAGRELOR 90 MG TABLET PO ×2 (10:24→22:02)
[2022-03-14 10:31] LABS: Basophils Absolute Auto 0.1 K/mm3 (0.0-0.1); Basophils Percent Auto 1.3 % (0.2-1.2); Eosinophils Absolute Auto 0.4 K/mm3 (0-0.3); Eosinophils Percent Auto 4.7 % (0-4.4); Hemoglobin 13.1 g/dL (14.0-18.0); Immature Granulocyte Absolute 0.08 K/mm3 (0.00-0.031); Lymphocytes Percent Auto 41.5 % (18.3-44.2); Mean Corpuscular Hemoglobin 27.8 pg (26-34); Monocytes Absolute Auto 0.7 K/mm3 (0.1-0.6); Monocytes Percent Auto 9.5 % (2.6-8.5); Neutrophils Absolute Auto 3.3 K/mm3 (1.3-6.7); Platelet Count Result 287 k/mm3 (150-375); Red Blood Count 4.71 M/mm3 (4.6-6.20); Red Cell Distribution Width 13.5 % (11.5-14.5); White Blood Count 7.7 K/mm3 (4.5-10.0)
[2022-03-14 10:37] LABS: Alanine Aminotransferase 16 U/L (6-50); Albumin Level 3.6 g/dL (3.5-5.1); Alkaline Phosphatase 45 U/L (38-126); Anion Gap 7 mmol/L (8-16); Aspartate Amino Transferase 24 U/L (17-59); Bilirubin,Total 0.2 mg/dL (0.2-1.3); Blood Urea Nitrogen 41 mg/dL (9-20); Calcium 8.7 mg/dL (8.4-10.2); Carbon Dioxide 24 mmol/L (22-30); Chloride 105 mmol/L (98-107); Estimated CRCL calculation 76 ml/min; Estimated Glomerular Filt Rate 57; Glucose 161 mg/dL (65-110); Potassium 4.4 mmol/L (3.4-5.0); Sodium 136 mmol/L (137-145)
--- NOTE | 2022-03-14 11:37 | PM.CNCAR ---
Assessment and Plan Additional Plan Atypical chest pain, negative enzymes and Hx of CAD and piror multiple PCI, HTN plan ASA, ticagrelor, Statin, B-felipe, CCB and ACEI, add Imdur 30 mg daily and stress test in AM History of Present Illness History of Present Illness Consult date/time: 03/14/22 11:37 Consult reason: chest pain Reason For Visit: chest pain Narrative: Patient presented with acute episode of chest pain, central present for 2 days, aching sharp or pressure like, moderate in severity. Waxing and waning. Hx of CAD and prior stents, last was 4 years in [facility] and has been asymptomatic since then. HE also has symptoms of fatigue with chest pain. Review of Systems Review of Systems: All systems reviewed & are unremarkable except as noted in HPI and below PMFSH Past Medical History Medical History (Updated 03/14/22 @ 05:13 by Riley Lew MD) Anxiety Bronchitis CAD (coronary artery disease) CHF (congestive heart failure) Chronic back pain COPD (chronic obstructive pulmonary disease) CVA (cerebral vascular accident) Depression Diverticulitis DVT (deep venous thrombosis) Emphysema of lung Heart attack x6 History of angina HTN (hypertension) Hyperlipidemia IDDM (insulin dependent diabetes mellitus) Kidney stones Mitral valve prolapse Pneumonia Presence of IVC filter Seizures Sleep apnea UTI (urinary tract infection) Surgical History Surgical History History of angioplasty History of back surgery L1 replacement, spinal fusion History of cardiac catheterization History of coronary artery stent placement History of knee surgery History of rhinoplasty History of shoulder surgery History of vascular surgery Family History Family History Mother Depression Family history of mental disorder Cerebrovascular accident, Onset Age: 68 Family history of arthritis Sibling Family history of heart disease in male family member before age 55 Family history of malignant neoplasm Family history of lung cancer Family history of obesity Carcinoma of colon Cerebrovascular accident Diabetes mellitus Family history of cardiovascular disease Father Family history of heart disease in male family member before age 55 Acute myocardial infarction, Onset Age: 69 Family history of congestive heart failure Family history of chronic obstructive pulmonary disease Family history of migraine headaches Cerebrovascular accident Diabetes mellitus Family history of arthritis Family history of cardiovascular disease Sibling Diabetes mellitus Family history of cardiovascular disease Sibling Diabetes mellitus Other Family history of lung disease Family history of osteoporosis Hypertension Social History Social History Smoking packs per day: 1 Smoking cigarettes per day: 20.0 Years smoked: 20 Smoking pack-years: 20.00 Smoking status: Former smoker Tobacco type: cigarettes Second hand tobacco smoke exposure: Yes Smoking end date: 02/26/19 Alcohol intake: never Alcohol use details: rarely Substance use: current Substance use type: marijuana Other substance usage details: marijuana daily Last use: 03/09/22 Gender identity (if verbalized by the patient): Male Sexual Orientation (if Verbalized by the Patient): Straight or Heterosexual Spiritual care concerns: No Agree to blood products: Yes Meds Home Medications and Allergies Home Medications Medication Instructions Recorded Confirmed Type aspirin 81 mg PO DAILY 10/25/19 03/14/22 History fenofibrate nanocrystallized 145 mg PO DAILY 10/25/19 03/14/22 History testosterone cypionate 200 mg/mL 100 mg IM WEEKLY ml 10/25/19 03/14/22 History intramuscular oil cyclobenzaprine 10 mg PO HS PRN 04/20/20 03/14/22 History ticagre
[2022-03-14 12:18] LABS: Glucose Point of Care 166 mg/dl (65-105)
[2022-03-14] MEDS: INSULIN GLARGINE (*BKC) 100 UNITS/ML 50 UNITS SUB-Q (12:31)
[2022-03-14] MEDS: SODIUM CHLORIDE 0.9% IV 1,000 ML 100 ML IV CONT (16:25)
[2022-03-14 16:51] LABS: Glucose Point of Care 237 mg/dl (65-105)
[2022-03-14] MEDS: FLUTICASONE/SALMETEROL 115-21 MCG INHALER 1 PUFF 2 PUFF INHALATION (19:48)
[2022-03-14 20:39] LABS: Glucose Point of Care 164 mg/dl (65-105)
[2022-03-14] MEDS: DOXAZOSIN MESYLATE 4 MG TABLET PO (22:01)
[2022-03-15] VITALS (23 sets, daily range): BP systolic 110–132; BP diastolic 58–81; PULSE 41–75; RESP 18–22; TEMP 36.3–36.8; O2SAT 96–99
--- NOTE | 2022-03-15 | EST_ITS ---
Patient Info Name: Bruce Peralta Age: 57 years : 1965 Gender: Male Ht: 74 in Wt: 254 lbs BSA: 2.48 m2 HR: 58 bpm BP: 93 / 56 mmHg Heart Rhythm: Sinus Rhythm Exam Date: 03/15/2022 11:24 AM Exam Location: [facility] Stress Patient Status: Inpatient Admit Date: 03/13/2022 Staff Ordering Physician: Nathaniel Vazquez MD Attending Provider: Riley Lew MD Exercise Technologist: Elise Martinez CT Nurse: SYED ARIAS Exam Type: CA stress nader w NM Study Info Indications R07.9 - Chest pain, unspecified A regadenoson stress test was performed. Summary 1. No abnormal ST/T wave changes meeting strict criteria for reversible myocardial ischemia noted with Lexiscan. 2. Occasional stress-induced PVCs. 3. Please correlate with nuclear medicine images, reported separately. 4. Slight stress-induced chest pain resolved spontaneously. Protocol: Lexiscan Stress ECG Details Stage: REST Duration (min): 1 min : 24 sec HR (bpm): 57 SBP (mmHg): 98 DBP (mmHg): 53 Stage: REST Duration (min): 1 min : 40 sec HR (bpm): 57 SBP (mmHg): 98 DBP (mmHg): 53 Stage: REST Duration (min): 1 min : 57 sec HR (bpm): 57 SBP (mmHg): 98 DBP (mmHg): 53 Stage: REST Duration (min): 9 min : 44 sec HR (bpm): 57 SBP (mmHg): 99 DBP (mmHg): 68 Stage: STAGE 1 Duration (min): 1 min : 0 sec HR (bpm): 69 SBP (mmHg): 101 DBP (mmHg): 63 Stage: RECOVERY Duration (min): 1 min : 0 sec HR (bpm): 65 SBP (mmHg): 101 DBP (mmHg): 63 Stage: RECOVERY Duration (min): 2 min : 0 sec HR (bpm): 62 SBP (mmHg): 101 DBP (mmHg): 63 Stage: RECOVERY Duration (min): 3 min : 0 sec HR (bpm): 64 SBP (mmHg): 100 DBP (mmHg): 62 Stage: RECOVERY Duration (min): 3 min : 40 sec HR (bpm): 63 SBP (mmHg): 100 DBP (mmHg): 62 Rest HR: 57 bpm Peak HR: 70 bpm Rest Sys BP: 99 mmHg Peak Sys BP: 101 mmHg Max Pred HR: 163 bpm % Max Pred HR: 43 % Target HR: 139 bpm Max RPP: 7,070 bpm*mmHg Termination Reason: Completed protocol Cardiac Symptoms: Chest pain Total Time: 1 min : 0 sec Rest [place] BP: 68 mmHg Peak [place] BP: 63 mmHg Total Dose: 0.4 mg Resting ECG Sinus bradycardia. First-degree AV block septal infarction age indeterminate. Stress ECG No abnormal ST/T wave changes meeting strict criteria for reversible myocardial ischemia noted with Lexiscan. Arrhythmias Occasional stress-induced PVCs. Report Signatures
--- NOTE | 2022-03-15 | ECHO_ITS ---
Patient Info Name: Bruce Peralta Age: 57 years : 1965 Gender: Male Ht: 74 in Wt: 251 lbs BSA: 2.47 m2 HR: 61 bpm BP: 112 / 79 mmHg Heart Rhythm: Sinus Rhythm Technical Quality: Good Exam Date: 03/15/2022 1:58 PM Exam Location: [facility] Patient Status: Inpatient Admit Date: 03/13/2022 Staff Ordering Physician: Riley Lew MD Security Systems Manager: Cristy Wilkerson RDCS Attending Provider: Riley Lew MD Referring Physician: Louann GIBSON; Exam Type: CA echo doppler color flow Study Info Indications R06.02 - Shortness of breath Complete two-dimensional, color flow and Doppler transthoracic echocardiogram is performed. Summary 1. Complete two-dimensional, color flow and Doppler transthoracic echocardiogram is performed. 2. Left ventricular chamber dimension is normal. 3. Left ventricular systolic function is normal, estimated at 55-60%. 4. There is moderately increased left ventricular wall thickness. 5. Left ventricular septal wall motion is abnormal with septal motion related to bundle branch block. 6. The left ventricular diastolic function is normal. 7. There is no mitral valve regurgitation. Left Ventricle Left ventricular chamber dimension is normal. Left ventricular systolic function is normal, estimated at 55-60%. There is moderately increased left ventricular wall thickness. Left ventricular septal wall motion is abnormal with septal motion related to bundle branch block. The left ventricular diastolic function is normal. Global longitudinal strain is mildly elevated at -16 %. Right Ventricle Right ventricular chamber dimension is mildly enlarged. Right ventricular systolic function is normal. Left Atria Left atrial chamber dimension is mildly enlarged. Right Atria Right atrial chamber dimension is mildly enlarged. Aortic Valve The aortic valve is trileaflet. There is mild aortic valve sclerosis. There is no aortic valve stenosis. There is trace aortic valve regurgitation. Pulmonic Valve The pulmonic valve is not well visualized. There is trace pulmonic regurgitation. Mitral Valve The mitral valve has thickened leaflets. There is no mitral valve regurgitation. The mitral valve annulus is mildly calcified. Tricuspid Valve The tricuspid valve leaflets are normal. There is trace tricuspid valve regurgitation. No pulmonary hypertension, estimated pulmonary arterial systolic pressure is 18 mmHg. Pericardium/Pleural The pericardium appears normal. There is trivial pericardial effusion. Inferior Vena Cava Normal inferior vena cava with <50% collapse upon inspiration consistent with elevated right atrial pressure, 10 mmHg. Aorta The aortic root size at the sinus of Valsalva is normal. Left Ventricular Outflow Tract Name Value Normal LVOT 2D LVOT Diameter 2.1 cm LVOT Doppler LVOT Peak Gradient 8 mmHg LVOT Mean Gradient 5 mmHg LVOT VTI 29 cm LVOT VTI/AV VTI Ratio 0.9 LVOT Stroke Volume 97 ml
[2022-03-15] MEDS: MORPHINE SULFATE (*CRX) 4 MG/ML INJ IV PUSH ×4 (00:59→14:38)
[2022-03-15] MEDS: ALBUTEROL SULFATE NEB 2.5 MG/0.5 ML INH INHALATION ×4 (01:18→20:30)
[2022-03-15] MEDS: IPRATROPIUM BR 0.02% INH SOLN 0.5 MG/2.5 ML VIAL INHALATION ×4 (01:18→20:30)
[2022-03-15] MEDS: SODIUM CHLORIDE 0.9% IV 1,000 ML 100 ML IV CONT (02:26)
[2022-03-15 05:40] LABS: Basophils Absolute Auto 0.1 K/mm3 (0.0-0.1); Basophils Percent Auto 1.2 % (0.2-1.2); Eosinophils Absolute Auto 0.3 K/mm3 (0-0.3); Eosinophils Percent Auto 4.3 % (0-4.4); Hematocrit 40.9 % (42.0-52.0); Hemoglobin 13.2 g/dL (14.0-18.0); Immature Granulocyte Absolute 0.07 K/mm3 (0.00-0.031); Lymphocytes Percent Auto 38.6 % (18.3-44.2); Mean Corpuscular HGB Conc 32.3 g/dl (32-36); Mean Corpuscular Hemoglobin 27.6 pg (26-34); Mean Corpuscular Volume 85.6 fl (80-100); Mean Platelet Volume 9.7 fl (7.4-10.4); Monocytes Absolute Auto 0.6 K/mm3 (0.1-0.6); Monocytes Percent Auto 8.3 % (2.6-8.5); Neutrophils Absolute Auto 3.4 K/mm3 (1.3-6.7); Neutrophils Percent Auto 46.6 % (45.5-73.1); Platelet Count Result 270 k/mm3 (150-375); Red Blood Count 4.78 M/mm3 (4.6-6.20); Red Cell Distribution Width 13.4 % (11.5-14.5); White Blood Count 7.3 K/mm3 (4.5-10.0)
[2022-03-15 05:55] LABS: Alanine Aminotransferase 17 U/L (6-50); Albumin Level 4.1 g/dL (3.5-5.1); Alkaline Phosphatase 38 U/L (38-126); Anion Gap 8 mmol/L (8-16); Aspartate Amino Transferase 19 U/L (17-59); Bilirubin,Total 0.2 mg/dL (0.2-1.3); Blood Urea Nitrogen 44 mg/dL (9-20); Calcium 8.3 mg/dL (8.4-10.2); Carbon Dioxide 22 mmol/L (22-30); Chloride 104 mmol/L (98-107); Estimated CRCL calculation 71 ml/min; Estimated Glomerular Filt Rate 52; Glucose 116 mg/dL (65-110); Potassium 4.5 mmol/L (3.4-5.0); Sodium 134 mmol/L (137-145)
[2022-03-15 07:40] LABS: Glucose Point of Care 104 mg/dl (65-105)
[2022-03-15] MEDS: oxyCODONE/ACETAMINOPHEN (*CRX) 5-325 MG TABLET 1 TABLET PO ×4 (08:15→21:45)
[2022-03-15] MEDS: oxyCODONE HCL (*CRX) 5 MG TAB IR PO ×4 (08:15→21:42)
[2022-03-15] MEDS: FLUTICASONE/SALMETEROL 115-21 MCG INHALER 1 PUFF 2 PUFF INHALATION ×2 (09:00→20:30)
[2022-03-15] MEDS: ENOXAPARIN 120 MG/0.8 ML SYRINGE 110 MG SUB-Q ×2 (09:35→21:28)
[2022-03-15] MEDS: VENLAFAXINE HCL XR 37.5 MG CAP PO (09:36)
[2022-03-15] MEDS: ATORVASTATIN 40 MG TABLET 80 MG PO (09:37)
[2022-03-15] MEDS: FENOFIBRATE NANOCRYSTALLIZED 145 MG TABLET PO (09:38)
[2022-03-15] MEDS: OMEGA 3 POLYUNSAT FATTY ACIDS 1 GM CAP 2 GM PO ×2 (09:38→17:39)
[2022-03-15] MEDS: FLUTICASONE PROPIONATE 0.05% NA SPR 16 GM BTL (*BKC) 2 SPRAY NASAL (09:38)
[2022-03-15] MEDS: PANTOPRAZOLE 40 MG TABLET PO ×2 (09:39→17:39)
[2022-03-15] MEDS: PREGABALIN (*CRX) 75 MG CAPSULE 150 MG PO ×3 (09:39→17:48)
[2022-03-15] MEDS: TICAGRELOR 90 MG TABLET PO ×2 (09:39→21:24)
[2022-03-15] MEDS: ISOSORBIDE MONONITRATE 30 MG TAB.ER.24H PO (09:40)
[2022-03-15] MEDS: lisinopriL 20 MG TABLET 40 MG PO ×2 (09:40→17:38)
[2022-03-15] MEDS: ASPIRIN 81 MG ENTERIC TABLET PO (09:40)
[2022-03-15] MEDS: carvediloL 25 MG TABLET PO ×2 (09:40→21:41)
[2022-03-15] MEDS: INSULIN GLARGINE (*BKC) 100 UNITS/ML 50 UNITS SUB-Q (09:41)
--- NOTE | 2022-03-15 10:31 | PM.IMPN ---
Progress Note: A&P Assessment and Plan (1) Chest pain: Code(s): R07.9 - Chest pain, unspecified Status: Acute Assessment and Plan: Improved with nitro but patient is not taking nitro due to severe headache Continue tele monitor Reviewed troponin EKG reviewed Cardiology consult Probable coronary artery disease stable angina versus esophageal source versus pericarditis versus pleurisy Pending his stress test I added colchicine for possible pericarditis If no improvement and stress test is negative will consider GI evaluation for endoscopy (2) CAD (coronary artery disease): Code(s): I25.10 - Atherosclerotic heart disease of [place] coronary artery without angina pectoris Status: Acute Assessment and Plan: Status post stent placement 4 years ago at [facility] Pending stress test (3) COPD (chronic obstructive pulmonary disease): Qualifiers: COPD type: unspecified COPD Qualified Code(s): J44.9 - Chronic obstructive pulmonary disease, unspecified Code(s): J44.9 - Chronic obstructive pulmonary disease, unspecified Status: Acute Assessment and Plan: Stable continue home medication (4) IDDM (insulin dependent diabetes mellitus): Code(s): E11.9 - Type 2 diabetes mellitus without complications; Z79.4 - quote clerk (current) use of insulin Status: Acute Assessment and Plan: Continue insulin Carb consistent diet Accu-Cheks AC and HS (5) Tobacco use: Code(s): Z72.0 - Tobacco use Status: Acute Assessment and Plan: Counseling (6) Type 2 diabetes mellitus with diabetic polyneuropathy, with long-term current use of insulin: Code(s): E11.42 - Type 2 diabetes mellitus with diabetic polyneuropathy; Z79.4 - halfway (current) use of insulin Status: Acute Assessment and Plan: As above (7) Peripheral autonomic neuropathy: Code(s): G90.9 - Disorder of the autonomic nervous system, unspecified Status: Acute Assessment and Plan: Monitor (8) GERD (gastroesophageal reflux disease): Code(s): K21.9 - Gastro-esophageal reflux disease without esophagitis Status: Acute Assessment and Plan: Continue PPI Subjective Date/time seen: 03/15/22 10:31 Interval history: his is a 57-year-old male with past medical history significant for coronary artery disease status post stent placement, COPD/emphysema, tobacco dependence, hypertension, dyslipidemia, type 2 diabetes mellitus insulin dependent, gastroesophageal reflux disease. Patient presents to the emergency room due to chest pain there is localized to the retrosternal area nonradiating, pain is constant, denies any diaphoresis, dizziness, but has had shortness of breath decreased stamina bilateral lower extremity ankle edema pedal edema cough nonproductive. According to the patient chest pain improved with nitro but patient is not taking nitro because of severe headache also his chest pain is worsening with activity. Patient has another episode of chest pain overnight required IV morphine added oral Percocet today. Pending stress test Added colchicine Patient feels weak still complaining of chest pain intermittent Patient denies fever headache fever or chills I am seeing the patient for chest pain Exam Narrative: Alert Chest no wheeze crackles Abdomen nontender nondistended CVS S1 + S2 Negative Lower extremities edema Objective Data Vital Signs Vital Signs: Vital Signs - 24 hr 03/14/22 12:00 03/14/22 14:00 03/14/22 14:09 Temperature 98.0 F Pulse Rate 59 L 61 57 L Respiratory Rate 16 20 20 Blood Pressure 118/71 Pulse Oximetry 98 03/14/22 16:00 03/14/22 18:00 03/14/22 19:50 Temperature 98.1 F Pulse Rate 63 62 67 Respiratory Rate 17 18 Blood Pressure 105/68 Pulse Oximetry 98 97 03/14/22 20:00 03/14/22 22:00 03/14/22 22:01 Temperature 97.7 F Pulse Rate 63 71 63 Respiratory Rate 20
--- NOTE | 2022-03-15 11:57 | PM.PNCARD ---
Progress Note: A&P Assessment and Plan (1) Chest pain: Code(s): R07.9 - Chest pain, unspecified Status: Acute Assessment and Plan: Atypical CP. Negative serial cardiac enzymes. Lexiscan stress test today showed normal myocardial perfusion at rest and during stress. Chest pain likely musculoskeletal in etiology. OK for discharge from a cardiac standpoint. He has follow up scheduled with Dr. Archer on April 12. (2) CAD (coronary artery disease): Code(s): I25.10 - Atherosclerotic heart disease of [place] coronary artery without angina pectoris Status: Acute Assessment and Plan: History of CAD with pultiple PCI's, most recent intervention being 4 years ago at [facility]. Has been stable since that time. Continue ASA Continue statin Continue coreg Continue amlodipine Continue Imdur Continue Brilinta Subjective Date/time seen: 03/15/22 11:57 Cardiology follow up for chest pain Still having right sided chest pain that is exacerbated by certain head/neck movements. Feeling anxious about upcoming stress test. No other complaints Review of Systems Review of Systems: All systems reviewed & are unremarkable except as noted in HPI and below Exam Const: General: comfortable and no acute distress Other: Able to lie flat HENMT: General nose exam: Normal nares present and no epistaxis Mouth: Yes moist mucous membranes Eyes: Sclera: sclerae normal Pupils: Equal, round and reactive pupils present Neck: Neck: supple and no JVD Carotids: no bruits Resp: Auscultation: clear to auscultation bilaterally Other: No chest wall tenderness Cardio: Rate: regular rate Rhythm: regular rhythm Heart sounds: no gallops, no murmurs and no rubs GI: Auscultation: normal bowel sounds Skin: General skin exam: normal color, rashes and/or lesions noted and no erythema Other: Warm Neuro: Cranial nerves: Yes Equal, round and reactive pupils present Speech: normal speech Other: No obvious focal deficit or facial asymmetry Extrem: General: no edema Other: Normal capillary refills Intact distal pulses. Objective Data Vital Signs Vital Signs: Vital Signs - 24 hr 03/14/22 12:00 03/14/22 14:00 03/14/22 14:09 Temperature 36.7 C Pulse Rate 59 L 61 57 L Respiratory Rate 16 20 20 Blood Pressure 118/71 Pulse Oximetry 98 03/14/22 16:00 03/14/22 18:00 03/14/22 19:50 Temperature 36.7 C Pulse Rate 63 62 67 Respiratory Rate 17 18 Blood Pressure 105/68 Pulse Oximetry 98 97 03/14/22 20:00 03/14/22 22:00 03/14/22 22:01 Temperature 36.5 C Pulse Rate 63 71 63 Respiratory Rate 20 Blood Pressure 124/81 Pulse Oximetry 100 03/14/22 23:36 03/15/22 00:00 03/15/22 01:30 Temperature 36.6 C Pulse Rate 65 52 L 60 Respiratory Rate 20 20 18 Blood Pressure 121/74 Pulse Oximetry 97 97 03/15/22 01:40 03/15/22 02:00 03/15/22 04:00 Temperature 36.6 C Pulse Rate 60 46 L 50 L Respiratory Rate 18 18 Blood Pressure 112/79 Pulse Oximetry 99 03/15/22 05:30 03/15/22 08:17 03/15/22 09:01 Temperature 36.3 C L Pulse Rate 41 L 55 L 64 Respiratory Rate 22 H 18 Blood Pressure 110/58 L Pulse Oximetry 97 03/15/22 09:09 03/15/22 09:40 Temperature Pulse Rate 70 63 Respiratory Rate 18 Blood Pressure Pulse Oximetry Intake/Output Intake/Output: Intake & Output 03/12/22 03/13/22 03/14/22 03/15/22 23:59 23:59 23:59 23:59 Intake Total 960 1000 Output Total 650 750 600 Balance -650 210 400 Meds/Results Medications: Active Medications Generic Name Dose Route Start Last Admin Trade Name Freq PRN Reason Stop Dose Admin Albuterol 2.5 mg 03/14/22 02:00 03/15/22 08:59 Albuterol Sulfate Neb 2.5 Mg/0.5 Ml Inh INHALATION 2.5 mg Q6HRT RICK Administration Albuterol 2 puff 03/14/22 05:16 Albuterol Sulfate (*Sp) Aerosol 1 Puff INHALATION Q4-6H PRN Shortness Of Breath Amlodipine Besylate 10 mg 03/14/22 09:
[2022-03-15 14:03] LABS: Glucose Point of Care 102 mg/dl (65-105)
[2022-03-15] MEDS: INSULIN ASPART (*BKC) 100 UNITS/ML SUB-Q ×2 (14:17→17:42)
[2022-03-15] MEDS: SPIRONOLACTONE 25 MG TABLET PO (14:18)
[2022-03-15] MEDS: DICLOFENAC SODIUM 1% 100 GM GEL (*BKC) 1 APPLIC TOPICAL ×2 (14:18→14:24)
[2022-03-15] MEDS: FUROSEMIDE INJ 40 MG/4 ML VIAL IV PUSH ×2 (14:18→17:38)
[2022-03-15] MEDS: COLCHICINE 0.6 MG TABLET PO ×2 (14:19→21:20)
[2022-03-15] MEDS: SUCRALFATE SUSP 100 MG/ML 10 ML UDC 1000 MG PO ×2 (16:17→21:21)
[2022-03-15 16:25] LABS: Glucose Point of Care 160 mg/dl (65-105)
[2022-03-15 16:31] LABS: Rheumatoid Factor 12.3 IU/ML (<12)
[2022-03-15 16:36] LABS: CRP < 0.5 mg/dL (<1.0); Uric Acid 6.3 mg/dL (3.5-8.5)
[2022-03-15 16:58] LABS: Erythrocyte Sedimentation Rate 9 mm/hr (0-20)
[2022-03-15 20:25] LABS: Glucose Point of Care 149 mg/dl (65-105)
[2022-03-15] MEDS: DOXAZOSIN MESYLATE 4 MG TABLET PO (21:23)
[2022-03-16] VITALS (18 sets, daily range): BP systolic 117–133; BP diastolic 62–78; PULSE 52–70; RESP 18–22; TEMP 36.4–37.1; O2SAT 96–99
[2022-03-16] MEDS: IPRATROPIUM BR 0.02% INH SOLN 0.5 MG/2.5 ML VIAL INHALATION ×3 (02:20→14:08)
[2022-03-16] MEDS: ALBUTEROL SULFATE NEB 2.5 MG/0.5 ML INH INHALATION ×3 (02:20→14:08)
[2022-03-16] MEDS: oxyCODONE HCL (*CRX) 5 MG TAB IR PO ×2 (04:50→12:07)
[2022-03-16] MEDS: oxyCODONE/ACETAMINOPHEN (*CRX) 5-325 MG TABLET 1 TABLET PO ×2 (04:50→12:08)
[2022-03-16 04:53] LABS: Alanine Aminotransferase 18 U/L (6-50); Albumin Level 3.9 g/dL (3.5-5.1); Alkaline Phosphatase 41 U/L (38-126); Anion Gap 7 mmol/L (8-16); Aspartate Amino Transferase 20 U/L (17-59); Bilirubin,Total 0.2 mg/dL (0.2-1.3); Blood Urea Nitrogen 43 mg/dL (9-20); Calcium 7.9 mg/dL (8.4-10.2); Carbon Dioxide 21 mmol/L (22-30); Chloride 103 mmol/L (98-107); Estimated CRCL calculation 71 ml/min; Estimated Glomerular Filt Rate 52; Glucose 191 mg/dL (65-110); Potassium 4.2 mmol/L (3.4-5.0); Sodium 131 mmol/L (137-145)
[2022-03-16 04:58] LABS: Basophils Absolute Auto 0.1 K/mm3 (0.0-0.1); Eosinophils Absolute Auto 0.3 K/mm3 (0-0.3); Hematocrit 36.8 % (42.0-52.0); Hemoglobin 12.3 g/dL (14.0-18.0); Immature Granulocyte Absolute 0.05 K/mm3 (0.00-0.031); Immature Granulocyte Percent A 0.7 % (0-0.5); Lymphocytes Percent Auto 32.7 % (18.3-44.2); Mean Corpuscular HGB Conc 33.4 g/dl (32-36); Mean Corpuscular Hemoglobin 28.1 pg (26-34); Mean Corpuscular Volume 84.2 fl (80-100); Mean Platelet Volume 9.8 fl (7.4-10.4); Monocytes Absolute Auto 0.6 K/mm3 (0.1-0.6); Monocytes Percent Auto 8.5 % (2.6-8.5); Neutrophils Absolute Auto 3.7 K/mm3 (1.3-6.7); Neutrophils Percent Auto 53.1 % (45.5-73.1); Platelet Count Result 267 k/mm3 (150-375); Red Blood Count 4.37 M/mm3 (4.6-6.20); Red Cell Distribution Width 13.4 % (11.5-14.5)
[2022-03-16] MEDS: SUCRALFATE SUSP 100 MG/ML 10 ML UDC 1000 MG PO ×2 (05:38→12:09)
[2022-03-16 08:28] LABS: Glucose Point of Care 116 mg/dl (65-105)
--- NOTE | 2022-03-16 08:34 | ECG_ITS ---
Measurements Intervals Weed Rate: 61 P: 58 MT: 292 QRS: 7 QRSD: 133 T: 54 QT: 396 QTc: 400 Interpretive Statements SINUS RHYTHM WITH FIRST DEGREE AV BLOCK INTRAVENTRICULAR CONDUCTION DELAY CANNOT RULE OUT SEPTAL INFARCT, AGE INDETERMINATE BORDERLINE T WAVE ABNORMALITY- HIGH LATERAL LEADS BASELINE ARTIFACT- I, II, AVR, AVL, V5 ABNORMAL ECG Electronically Signed On 03-16-2022 9:50:18 CDT by Satinder aEson D.O.
[2022-03-16] MEDS: FLUTICASONE/SALMETEROL 115-21 MCG INHALER 1 PUFF 2 PUFF INHALATION (08:36)
[2022-03-16] MEDS: OMEGA 3 POLYUNSAT FATTY ACIDS 1 GM CAP 2 GM PO (10:24)
[2022-03-16] MEDS: ASPIRIN 81 MG ENTERIC TABLET PO (10:25)
[2022-03-16] MEDS: lisinopriL 20 MG TABLET 40 MG PO (10:25)
[2022-03-16] MEDS: ATORVASTATIN 40 MG TABLET 80 MG PO (10:25)
[2022-03-16] MEDS: FENOFIBRATE NANOCRYSTALLIZED 145 MG TABLET PO (10:25)
[2022-03-16] MEDS: VENLAFAXINE HCL XR 37.5 MG CAP PO (10:26)
[2022-03-16] MEDS: ISOSORBIDE MONONITRATE 30 MG TAB.ER.24H PO (10:26)
[2022-03-16] MEDS: PANTOPRAZOLE 40 MG TABLET PO (10:26)
[2022-03-16] MEDS: TICAGRELOR 90 MG TABLET PO (10:27)
[2022-03-16] MEDS: SPIRONOLACTONE 25 MG TABLET PO (10:27)
[2022-03-16] MEDS: carvediloL 25 MG TABLET PO (10:27)
[2022-03-16] MEDS: INSULIN GLARGINE (*BKC) 100 UNITS/ML 50 UNITS SUB-Q (10:29)
[2022-03-16] MEDS: COLCHICINE 0.6 MG TABLET PO (10:32)
[2022-03-16] MEDS: FLUTICASONE PROPIONATE 0.05% NA SPR 16 GM BTL (*BKC) 2 SPRAY NASAL (10:32)
[2022-03-16] MEDS: INSULIN ASPART (*BKC) 100 UNITS/ML SUB-Q ×2 (10:32→12:40)
[2022-03-16] MEDS: FUROSEMIDE INJ 40 MG/4 ML VIAL IV PUSH (10:33)
[2022-03-16] MEDS: PREGABALIN (*CRX) 75 MG CAPSULE 150 MG PO ×2 (10:38→15:03)
--- NOTE | 2022-03-16 11:32 | PC.NURSE ---
0915- Family arrived- x2 daughters- at bedside with pt.
--- NOTE | 2022-03-16 11:46 | PM.PNCARD ---
Progress Note: A&P Assessment and Plan (1) Chest pain: Code(s): R07.9 - Chest pain, unspecified <ANA Brown - Last Filed: 03/16/22 14:01> Status: Acute <ANA Brown - Last Filed: 03/16/22 14:01> Assessment and Plan: Atypical CP. Negative serial cardiac enzymes. Lexiscan stress test today showed normal myocardial perfusion at rest and during stress. Chest pain likely musculoskeletal in etiology. OK for discharge from a cardiac standpoint. He has follow up scheduled with Dr. Archer on April 12. <ANA Brown - Last Filed: 03/16/22 14:01> (2) CAD (coronary artery disease): Code(s): I25.10 - Atherosclerotic heart disease of [place] coronary artery without angina pectoris <ANA Brown - Last Filed: 03/16/22 14:01> Status: Acute <ANA Brown - Last Filed: 03/16/22 14:01> Assessment and Plan: History of CAD with pultiple PCI's, most recent intervention being 4 years ago at [facility]. Has been stable since that time. Continue ASA Continue statin Decrease coreg to 12.5 mg b.i.d. - he has had some 2nd degree type 1 AVB on telemetry Continue amlodipine Continue Imdur Continue Brilinta - he has had in stent restenosis. <ANA Brown - Last Filed: 03/16/22 14:01> Additional Plan Attending Addendum: I agree with the above documentation and plan of care as outlined. <José Dow MD - Last Filed: 03/16/22 17:50> Subjective Date/time seen: 03/16/22 11:46 Cardiology follow up for CAD Stable. Still complaining of some mild, constant chest pain. No other complaints. <ANA Brown - Last Filed: 03/16/22 14:01> Review of Systems Review of Systems: All systems reviewed & are unremarkable except as noted in HPI and below <ANA Brown - Last Filed: 03/16/22 14:01> Exam Const: General: comfortable and no acute distress <ANA Brown - Last Filed: 03/16/22 14:01> HENMT: General nose exam: Normal nares present and no epistaxis <ANA Brown - Last Filed: 03/16/22 14:01> Mouth: Yes moist mucous membranes <ANA Brown - Last Filed: 03/16/22 14:01> Eyes: Sclera: sclerae normal <ERIC Brown - Last Filed: 03/16/22 14:01> Pupils: Equal, round and reactive pupils present <ANA Brown - Last Filed: 03/16/22 14:01> Neck: Neck: supple and no JVD <REIC Brown - Last Filed: 03/16/22 14:01> Carotids: no bruits <ERIC Brown - Last Filed: 03/16/22 14:01> Resp: Auscultation: clear to auscultation bilaterally <ANA Brown - Last Filed: 03/16/22 14:01> Other: No chest wall tenderness <ANA Brown - Last Filed: 03/16/22 14:01> Cardio: Rate: regular rate <ANA Brown - Last Filed: 03/16/22 14:01> Rhythm: regular rhythm <ANA Brown - Last Filed: 03/16/22 14:01> Heart sounds: no gallops, no murmurs and no rubs <ANA Brown - Last Filed: 03/16/22 14:01> GI: Auscultation: normal bowel sounds <ANA Brown - Last Filed: 03/16/22 14:01> Skin: General skin exam: normal color, rashes and/or lesions noted and no erythema <ANA Brown - Last Filed: 03/16/22 14:01> Other: Warm <ANA Brown - Last Filed: 03/16/22 14:01> Neuro: Cranial nerves: Yes Equal, round and reactive pupils present <ANA Brown - Last Filed: 03/16/22 14:01> Speech: normal speech <ANA Brown - Last Filed: 03/16/22 14:01> Other: No obvious focal deficit or facial asymmetry <ANA Brown - Last Filed: 03/16/22 14:01> Extrem: General: no edema <ANA Brown - Last Filed: 03/16/22 14:01> Other: Normal capillary refills Intact distal pulses. <ANA Brown - Last Filed: 03/16/22 14:01> Objective Data Vital Signs Vital Signs: Vital Signs - 24 hr 03/15/22 12:00 03/15/22 13:59 03/15/22 14:00
[2022-03-16 12:14] LABS: Glucose Point of Care 134 mg/dl (65-105)
[2022-03-16] MEDS: DICLOFENAC SODIUM 1% 100 GM GEL (*BKC) 1 APPLIC TOPICAL (12:43)
--- NOTE | 2022-03-16 14:52 | PM.DS ---
DS: Admitting Diagnosis Discharge Date 03/16/2022 Admitting Diagnosis chest pain DS: Discharge Diagnosis Discharge Diagnosis (1) Chest pain: Code(s): R07.9 - Chest pain, unspecified Status: Acute Assessment and Plan: Improved with nitro but patient is not taking nitro due to severe headache Continue tele monitor Reviewed troponin EKG reviewed Cardiology consult Probable coronary artery disease stable angina versus esophageal source versus pericarditis versus pleurisy Pending his stress test I added colchicine for possible pericarditis If no improvement and stress test is negative will consider GI evaluation for endoscopy (2) CAD (coronary artery disease): Code(s): I25.10 - Atherosclerotic heart disease of [place] coronary artery without angina pectoris Status: Acute Assessment and Plan: Status post stent placement 4 years ago at [facility] Pending stress test (3) COPD (chronic obstructive pulmonary disease): Qualifiers: COPD type: unspecified COPD Qualified Code(s): J44.9 - Chronic obstructive pulmonary disease, unspecified Code(s): J44.9 - Chronic obstructive pulmonary disease, unspecified Status: Acute Assessment and Plan: Stable continue home medication (4) IDDM (insulin dependent diabetes mellitus): Code(s): E11.9 - Type 2 diabetes mellitus without complications; Z79.4 - bed bug exterminator (current) use of insulin Status: Acute Assessment and Plan: Continue insulin Carb consistent diet Accu-Cheks AC and HS (5) Tobacco use: Code(s): Z72.0 - Tobacco use Status: Acute Assessment and Plan: Counseling (6) Type 2 diabetes mellitus with diabetic polyneuropathy, with long-term current use of insulin: Code(s): E11.42 - Type 2 diabetes mellitus with diabetic polyneuropathy; Z79.4 - bed bug exterminator (current) use of insulin Status: Acute Assessment and Plan: As above (7) Peripheral autonomic neuropathy: Code(s): G90.9 - Disorder of the autonomic nervous system, unspecified Status: Acute Assessment and Plan: Monitor (8) GERD (gastroesophageal reflux disease): Code(s): K21.9 - Gastro-esophageal reflux disease without esophagitis Status: Acute Assessment and Plan: Continue PPI DS: Summary Hospital Course Reason for hospitalization: Chief Complaint: Chest pain. Narrative: This is a 57-year-old male with past medical history significant for coronary artery disease status post stent placement, COPD/emphysema, tobacco dependence, hypertension, dyslipidemia, type 2 diabetes mellitus insulin dependent, gastroesophageal reflux disease. Patient presents to the emergency room due to chest pain there is localized to the retrosternal area nonradiating, pain is constant, denies any diaphoresis, dizziness, but has had shortness of breath decreased stamina bilateral lower extremity ankle edema and pedal edema cough nonproductive denies any fevers, chills rigors, chills, no nausea, no vomiting, no abdominal pain, no diarrhea, no syncope, no near syncope. Preliminary workup has been essentially nonrevealing. Patient is being admitted for further evaluation management and treatment. Hospital Course: Patient presented with chest 3 sets of cardiac enzymes are negative there are no acute changes on EKG to further evaluate patient had Lexiscan which essentially normal, patient is seen by Cardiology does not suspect acute coronary syndrome most likely musculoskeletal chest pain, patient is clinically stable will discharge the patient today Status at Discharge Functional status at discharge: independent ambulation Overall status at discharge: patient is back to baseline Time Spent with Patient Time attestation: Total time spent providing and/or coordinating discharge services: Patient was seen and examined at the time of the discharge Condition at discharge is stable Code status: Full code.
--- NOTE | 2022-03-16 15:50 | PC.NURSE ---
Discharged as ordered- pt acknowledged understanding to take medications as instructed by MD- agreed to follow-up with MD as ordered'--- home via w/c accompanied by staff to vehicle driven by son
== END 2022-03-16 15:45 | disposition home or self-care (01) ==
LOC: ANHED 23:22 → ANHIMU 03-14 02:30
PROVIDERS: Emergency Medicine; Internal Medicine; Admitting Provider Internal Medicine; Emergency Provider Emergency Medicine; PCP Internal Medicine; Visit Provider Family Medicine
DX: R07.9 Chest pain, unspecified (principal); I11.0 Hypertensive heart disease with heart failure; I50.9 Heart failure, unspecified; E78.5 Hyperlipidemia, unspecified; J44.9 Chronic obstructive pulmonary disease, unspecified; Z79.82 Long term (current) use of aspirin; F12.90 Cannabis use, unspecified, uncomplicated; I25.10 Atherosclerotic heart disease of native coronary artery without angina pectoris; Z79.4 Long term (current) use of insulin; E11.42 Type 2 diabetes mellitus with diabetic polyneuropathy; G90.9 Disorder of the autonomic nervous system, unspecified; K21.9 Gastro-esophageal reflux disease without esophagitis; I25.2 Old myocardial infarction; F17.210 Nicotine dependence, cigarettes, uncomplicated
CPT/HCPCS: 36415; 71045; 78452; 80053; 82948; 83880; 84484; 84550; 85025; 85610; 85652; 85730; 86140; 86430; 93005; 93017; 93306; 94640; 96361; 96372; 96374; 96375; 96376; 99285; A9270; A9502; G0378; J1650; J1815; J1940; J2270; J2405; J2785; J7030

== ENCOUNTER 2022-07-20 15:56 | Outpatient (CLI) | payer MEDICARE, MEDICAID, SELFPAY ==
[2022-07-20 16:54] LABS: Alanine Aminotransferase 23 U/L (6-50); Albumin Level 4.6 g/dL (3.5-5.1); Alkaline Phosphatase 55 U/L (38-126); Anion Gap 11 mmol/L (8-16); Aspartate Amino Transferase 23 U/L (17-59); Bilirubin,Total 0.3 mg/dL (0.2-1.3); Blood Urea Nitrogen 21 mg/dL (9-20); Calcium 9.8 mg/dL (8.4-10.2); Carbon Dioxide 22 mmol/L (22-30); Chloride 106 mmol/L (98-107); Estimated Glomerular Filt Rate > 60; Glucose 150 mg/dL (65-110); Potassium 4.3 mmol/L (3.4-5.0); Sodium 139 mmol/L (137-145)
[2022-07-20 17:25] LABS: Creatinine Urine 38.9 mg/dL
[2022-07-20 17:29] LABS: MALB Creatinine Ratio 113.4 mg/g (0-30); Microalbumin Urine Random 44.1 mg/L (0-16.7)
[2022-07-20 20:12] LABS: Hemoglobin A1C 7.9 % (<5.7)
== END 2022-07-20 15:57 | disposition home or self-care (01) ==
PROVIDERS: PCP Internal Medicine; Visit Provider Internal Medicine
DX: I25.10 Atherosclerotic heart disease of native coronary artery without angina pectoris (principal)
CPT/HCPCS: 36415; 80053; 82043; 83036

== ENCOUNTER 2023-06-14 11:27 | Emergency (ER) | payer MEDICARE, MEDICAID, SELFPAY ==
[2023-06-14 11:43] VITALS: BP 144/88; PULSE 84; RESP 16; TEMP 36.6; O2SAT 95
--- NOTE | 2023-06-14 11:43 | ED.URI ---
HPI - URI/Sore Throat General Chief Complaint: Upper Respiratory Infection Stated Complaint: Fever/Headache/Body Aches Source: patient and RN notes reviewed History of Present Illness HPI Narrative: 58 yo M Presents to urgent care with complaints of fatigue and body aches since last night. Pt states he has a slight cough, congestion, chest tightness, and SOB with this. Pt denies any fevers, sore throat, ear pain, abdominal pain, N/V/D, or other complaints. Related Data Home Medications Medication Instructions Recorded Confirmed aspirin 81 mg tablet,delayed 81 mg PO DAILY 10/25/19 05/17/22 release fenofibrate nanocrystallized 145 145 mg PO DAILY 10/25/19 05/17/22 mg tablet testosterone cypionate 200 mg/mL 100 mg IM WEEKLY 10/25/19 05/17/22 intramuscular oil cyclobenzaprine 10 mg tablet 10 mg PO HS PRN Muscle Pain 04/20/20 05/17/22 budesonide-formoterol HFA 160 2 puff inhalation BID 03/14/22 05/17/22 mcg-4.5 mcg/actuation aerosol inhaler (Symbicort) fluticasone propionate 50 2 spray intranasal DAILY 03/14/22 05/17/22 mcg/actuation nasal spray,suspension glimepiride 2 mg tablet 4 mg PO BID 03/14/22 05/17/22 metformin 1,000 mg tablet 1,000 mg PO DAILY 03/14/22 05/17/22 omeprazole 40 mg capsule,delayed 40 mg PO DAILY 03/14/22 05/17/22 release venlafaxine 37.5 mg 37.5 mg PO DAILY 03/14/22 05/17/22 capsule,extended release 24 hr Allergies Allergy/AdvReac Type Severity Reaction Status Date / Time No Known Allergies Allergy Unknown Verified 05/17/22 11:38 Review of Systems Review of Systems: Pertinent positives and pertinent negatives per HPI. [facility], [facility] Past Medical History Medical History Anxiety Bronchitis CAD (coronary artery disease) CHF (congestive heart failure) Chronic back pain COPD (chronic obstructive pulmonary disease) CVA (cerebral vascular accident) Depression Diverticulitis DVT (deep venous thrombosis) Emphysema of lung Heart attack x6 History of angina HTN (hypertension) Hyperlipidemia IDDM (insulin dependent diabetes mellitus) Kidney stones Mitral valve prolapse Pneumonia Presence of IVC filter Seizures Sleep apnea UTI (urinary tract infection) Surgical History Surgical History History of angioplasty History of back surgery L1 replacement, spinal fusion History of cardiac catheterization History of coronary artery stent placement History of knee surgery History of rhinoplasty History of shoulder surgery History of vascular surgery Family History Family History Mother Depression Family history of mental disorder Cerebrovascular accident, Onset Age: 68 Family history of arthritis Sibling Family history of heart disease in male family member before age 55 Family history of malignant neoplasm Family history of lung cancer Family history of obesity Carcinoma of colon Cerebrovascular accident Diabetes mellitus Family history of cardiovascular disease Father Family history of heart disease in male family member before age 55 Acute myocardial infarction, Onset Age: 69 Family history of congestive heart failure Family history of chronic obstructive pulmonary disease Family history of migraine headaches Cerebrovascular accident Diabetes mellitus Family history of arthritis Family history of cardiovascular disease Sibling Diabetes mellitus Family history of cardiovascular disease Sibling Diabetes mellitus Other Family history of lung disease Family history of osteoporosis Hypertension Social History Social History Smoking packs per day: 1 Smoking cigarettes per day: 20.0 Years smoked: 20 Smoking pack-years: 20.00 Smoking status: Former smoker Tobacco type: cigarettes Second
== END 2023-06-14 11:58 | disposition home or self-care (01) ==
PROVIDERS: Emergency Provider Nurse Practitioner Family
DX: B34.9 Viral infection, unspecified (principal); Z87.891 Personal history of nicotine dependence; I11.0 Hypertensive heart disease with heart failure; I50.9 Heart failure, unspecified; J44.9 Chronic obstructive pulmonary disease, unspecified; I25.110 Atherosclerotic heart disease of native coronary artery with unstable angina pectoris; E11.9 Type 2 diabetes mellitus without complications; Z79.84 Long term (current) use of oral hypoglycemic drugs; I34.1 Nonrheumatic mitral (valve) prolapse; Z86.73 Personal history of transient ischemic attack (TIA), and cerebral infarction without residual deficits; I25.2 Old myocardial infarction; F41.9 Anxiety disorder, unspecified; Z95.5 Presence of coronary angioplasty implant and graft
CPT/HCPCS: 99213; G0463

== ENCOUNTER 2023-06-23 09:38 | Outpatient (CLI) | payer MEDICARE, MEDICAID, SELFPAY ==
[2023-06-23 10:23] LABS: Basophils Absolute Auto 0.1 K/mm3 (0.0-0.1); Basophils Percent Auto 1.3 % (0.2-1.2); Eosinophils Absolute Auto 0.3 K/mm3 (0-0.3); Eosinophils Percent Auto 3.8 % (0-4.4); Immature Granulocyte Absolute 0.07 K/mm3 (0.00-0.031); Lymphocytes Absolute Auto 2.09 K/mm3 (0.9-3.2); Mean Corpuscular HGB Conc 32.6 g/dl (32-36); Mean Corpuscular Hemoglobin 27.8 pg (26-34); Mean Corpuscular Volume 85.2 fl (80-100); Mean Platelet Volume 9.4 fl (7.4-10.4); Monocytes Absolute Auto 0.7 K/mm3 (0.1-0.6); Monocytes Percent Auto 9.2 % (2.6-8.5); Neutrophils Percent Auto 55.7 % (45.5-73.1); Platelet Count Result 240 k/mm3 (150-375); Red Cell Distribution Width 13.9 % (11.5-14.5); White Blood Count 7.2 K/mm3 (4.5-10.0)
[2023-06-23 10:35] LABS: Alanine Aminotransferase 23 U/L (6-50); Albumin Level 4.1 g/dL (3.5-5.1); Alkaline Phosphatase 71 U/L (38-126); Anion Gap 9 mmol/L (8-16); Aspartate Amino Transferase 17 U/L (17-59); Bilirubin,Total 0.2 mg/dL (0.2-1.3); Blood Urea Nitrogen 20 mg/dL (9-20); Calcium 9.1 mg/dL (8.4-10.2); Carbon Dioxide 18 mmol/L (22-30); Chloride 106 mmol/L (98-107); Estimated Glomerular Filt Rate > 60; Sodium 133 mmol/L (137-145)
[2023-06-23 10:36] LABS: Glucose 301 mg/dL (65-110)
[2023-06-23 10:44] LABS: LDL Cholesterol Direct 64 mg/dL
[2023-06-23 10:50] LABS: Cholesterol 160 mg/dL (0-200); Triglycerides 628 mg/dL (<150)
[2023-06-23 11:02] LABS: Creatinine Urine 47.5 mg/dL
[2023-06-23 11:06] LABS: MALB Creatinine Ratio 191.8 mg/g (0-30); Microalbumin Urine Random 91.1 mg/L (0-16.7)
[2023-06-23 11:24] LABS: Hemoglobin A1C 10.3 % (<5.7)
== END 2023-06-23 09:39 | disposition home or self-care (01) ==
PROVIDERS: Visit Provider Nurse Practitioner Family
DX: E78.5 Hyperlipidemia, unspecified (principal); Z72.0 Tobacco use; Z86.73 Personal history of transient ischemic attack (TIA), and cerebral infarction without residual deficits; I10 Essential (primary) hypertension; E11.9 Type 2 diabetes mellitus without complications; Z79.4 Long term (current) use of insulin
CPT/HCPCS: 36415; 80053; 80061; 82043; 83036; 85025

== ENCOUNTER 2024-01-03 11:10 | Emergency (ER) | payer MEDICARE, MEDICAID, SELFPAY ==
--- NOTE | ~2024-01-03 | XR_ITS ---
EXAMINATION: XR chest 2V DATE: 01/03/2024 12:03 INDICATION: Shortness of breath. Cough. TECHNIQUE: Frontal and lateral views of the chest were obtained. COMPARISON: Chest single view 03/13/2022, chest CT 10/21/2021 FINDINGS: There is no pneumonia, pleural effusion, or pneumothorax. The heart size is normal. There a re changes of posterior fusion procedure in lumbar spine. IMPRESSION: 1. No acute cardiopulmonary disease. Reviewed, dictated and finalized at location A. [employer]
[2024-01-03 11:23] VITALS: BP 135/96; PULSE 77; RESP 20; TEMP 36.9; O2SAT 96
--- NOTE | 2024-01-03 11:33 | ED.URI ---
HPI - URI/Sore Throat General Chief Complaint: Upper Respiratory Infection Stated Complaint: poss COVID/Pneumonia Time Seen by Provider: 01/03/24 11:30 Source: patient, RN notes reviewed and old records reviewed Mode of arrival: ambulatory Limitations: no limitations History of Present Illness HPI Narrative: 58 year old male who presents to [place] care with complaints of harsh cough for a week duration with body aches starting on Tuesday, sinus congestion with drainage, states his chest feels like he has a lot of congestion in it. Patient states that he had fever up to 101.1F last evening and treated with Tylenol. Patient reports that he needs refill on his valtrex no refills has fevers sores breaking out in his mouth now also. Patient has had some Diarrhea and has taken Imodium for that. Patient reports past history of pneumonia and sinus problems. MD elicited complaint: fever, cough and other (body aches) Pertinent past history: pneumonia, sinusitis, COPD and other (cardiac history, diabetes) Onset (ago): day(s) (4) Consistency: progressively worsening Pain scale (0-10): 4 Able to tolerate fluids by mouth: Yes Treatments prior to arrival: acetaminophen and other (Imodium) Related Data Home Medications Medication Instructions Recorded Confirmed aspirin 81 mg tablet,delayed 81 mg PO DAILY 10/25/19 06/27/23 release fenofibrate nanocrystallized 145 145 mg PO DAILY 10/25/19 06/27/23 mg tablet testosterone cypionate 200 mg/mL 100 mg IM WEEKLY 10/25/19 06/27/23 intramuscular oil cyclobenzaprine 10 mg tablet 10 mg PO HS PRN Muscle Pain 04/20/20 06/27/23 budesonide-formoterol HFA 160 2 puff inhalation BID 03/14/22 06/27/23 mcg-4.5 mcg/actuation aerosol inhaler (Symbicort) fluticasone propionate 50 2 spray intranasal DAILY 03/14/22 06/27/23 mcg/actuation nasal spray,suspension glimepiride 2 mg tablet 4 mg PO BID 03/14/22 06/27/23 metformin 1,000 mg tablet 1,000 mg PO DAILY 03/14/22 06/27/23 omeprazole 40 mg capsule,delayed 40 mg PO DAILY 03/14/22 06/27/23 release Allergies Allergy/AdvReac Type Severity Reaction Status Date / Time No Known Allergies Allergy Unknown Verified 01/03/24 11:28 Review of Systems Review of Systems: CONSTITUTIONAL:Reports malaise, chills, sweats, or fever. EYES: Denies visual changes, redness, or discharge. ENT: Reports rhinorrhea, congestion, sinus pain, no otalgia and sore throat.fever sores in mouth CARDIOVASCULAR: Denies chest pain, palpitations, or edema. RESPIRATORY: Reports cough.? Denies acute dyspnea, some dyspnea with exertion. GASTROINTESTINAL: Denies abdominal pain, nausea, vomiting, diarrhea SKIN: Denies rash or itching. MUSCULOSKELETAL:Reports myalgia. NEUROLOGIC: Denies headache. All systems reviewed & are unremarkable except as noted in HPI and below PMFSH Past Medical History Medical History Anxiety Bronchitis CAD (coronary artery disease) CHF (congestive heart failure) Chronic back pain COPD (chronic obstructive pulmonary disease) CVA (cerebral vascular accident) Depression Diverticulitis DVT (deep venous thrombosis) Emphysema of lung Heart attack x6 History of angina HTN (hypertension) Hyperlipidemia IDDM (insulin dependent diabetes mellitus) Kidney stones Mitral valve prolapse Pneumonia Presence of IVC filter Seizures Sleep apnea UTI (urinary tract infection) Surgical History Surgical History History of angioplasty History of back surgery L1 replacement, spinal fusion History of cardiac catheterization History of coronary artery stent placement History of knee surgery History of rhinoplasty History of shoulder surgery History of vascular surgery Family History Family History Mother Depression Family history of mental disorder Cerebrovascul
== END 2024-01-03 12:21 | disposition home or self-care (01) ==
PROVIDERS: Emergency Provider Registered Nurse
DX: J10.1 Influenza due to other identified influenza virus with other respiratory manifestations (principal); Z20.822 Contact with and (suspected) exposure to COVID-19; Z87.891 Personal history of nicotine dependence; I25.110 Atherosclerotic heart disease of native coronary artery with unstable angina pectoris; I11.0 Hypertensive heart disease with heart failure; I50.9 Heart failure, unspecified; E11.9 Type 2 diabetes mellitus without complications; Z79.84 Long term (current) use of oral hypoglycemic drugs; I34.1 Nonrheumatic mitral (valve) prolapse; Z86.718 Personal history of other venous thrombosis and embolism; I25.2 Old myocardial infarction; J44.9 Chronic obstructive pulmonary disease, unspecified
CPT/HCPCS: 71046; 87426; 87804; 99213; G0463

== ENCOUNTER 2024-02-08 09:12 | Emergency (ER) | payer MEDICARE, MEDICAID, SELFPAY ==
--- NOTE | ~2024-02-08 | XR_ITS ---
EXAMINATION: XR foot RT min 3V DATE: 02/08/2024 09:35 INDICATION: Right foot injury and pain. TECHNIQUE: 4 views of right foot were obtained. COMPARISON: None. FINDINGS: Bone alignment is normal. No fracture. 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 IMPRESSION: 1. No fracture. Reviewed, dictated and finalized at location A. IMPRESSION: 1. No fracture.
[2024-02-08 09:35] VITALS: BP 170/87; PULSE 74; RESP 16; TEMP 36.5; O2SAT 98
[2024-02-08] MEDS: HYDROcodone/acetaminophen (*CRX) 5-325 MG TABLET 1 TAB PO (09:51)
--- NOTE | 2024-02-08 09:56 | ED.GENADULT ---
HPI - General Adult General Chief complaint: Extremity Injury, Lower Stated complaint: right foot injury Time Seen by Provider: 02/08/24 09:33 History of Present Illness HPI narrative: Bruce Peralta is a 58 y/o male who presents today with reports of hitting his right foot on a door 36 hours ago. He states that the pain has been continuous and wanted to get it checked out. Related Data Home Medications Medication Instructions Recorded Confirmed aspirin 81 mg tablet,delayed 81 mg PO DAILY 10/25/19 06/27/23 release fenofibrate nanocrystallized 145 145 mg PO DAILY 10/25/19 06/27/23 mg tablet testosterone cypionate 200 mg/mL 100 mg IM WEEKLY 10/25/19 06/27/23 intramuscular oil cyclobenzaprine 10 mg tablet 10 mg PO HS PRN Muscle Pain 04/20/20 06/27/23 budesonide-formoterol HFA 160 2 puff inhalation BID 03/14/22 06/27/23 mcg-4.5 mcg/actuation aerosol inhaler (Symbicort) fluticasone propionate 50 2 spray intranasal DAILY 03/14/22 06/27/23 mcg/actuation nasal spray,suspension glimepiride 2 mg tablet 4 mg PO BID 03/14/22 06/27/23 metformin 1,000 mg tablet 1,000 mg PO DAILY 03/14/22 06/27/23 omeprazole 40 mg capsule,delayed 40 mg PO DAILY 03/14/22 06/27/23 release Allergies Allergy/AdvReac Type Severity Reaction Status Date / Time No Known Allergies Allergy Unknown Verified 02/08/24 09:43 Review of Systems Review of Systems: All systems reviewed & are unremarkable except as noted in HPI and below PMFSH Past Medical History Medical History Anxiety Bronchitis CAD (coronary artery disease) CHF (congestive heart failure) Chronic back pain COPD (chronic obstructive pulmonary disease) CVA (cerebral vascular accident) Depression Diverticulitis DVT (deep venous thrombosis) Emphysema of lung Heart attack x6 History of angina HTN (hypertension) Hyperlipidemia IDDM (insulin dependent diabetes mellitus) Kidney stones Mitral valve prolapse Pneumonia Presence of IVC filter Seizures Sleep apnea UTI (urinary tract infection) Surgical History Surgical History History of angioplasty History of back surgery L1 replacement, spinal fusion History of cardiac catheterization History of coronary artery stent placement History of knee surgery History of rhinoplasty History of shoulder surgery History of vascular surgery Family History Family History Mother Depression Family history of mental disorder Cerebrovascular accident, Onset Age: 68 Family history of arthritis Sibling Family history of heart disease in male family member before age 55 Family history of malignant neoplasm Family history of lung cancer Family history of obesity Carcinoma of colon Cerebrovascular accident Diabetes mellitus Family history of cardiovascular disease Father Family history of heart disease in male family member before age 55 Acute myocardial infarction, Onset Age: 69 Family history of congestive heart failure Family history of chronic obstructive pulmonary disease Family history of migraine headaches Cerebrovascular accident Diabetes mellitus Family history of arthritis Family history of cardiovascular disease Sibling Diabetes mellitus Family history of cardiovascular disease Sibling Diabetes mellitus Other Family history of lung disease Family history of osteoporosis Hypertension Social History Social History Smoking packs per day: 1 Smoking cigarettes per day: 20.0 Years smoked: 20 Smoking pack-years: 20.00 Smoking status: Former smoker Tobacco type: cigarettes Second hand tobacco smoke exposure: Yes Smoking end date: 02/26/19 Alcohol intake: never Alcohol use details: rarely Substance use: current Substance use type: nicko
== END 2024-02-08 10:40 | disposition home or self-care (01) ==
LOC: ANHED 10:08
PROVIDERS: Emergency Provider Nurse Practitioner Family; Referring Provider Emergency Medicine
DX: S90.31XA Contusion of right foot, initial encounter (principal); W22.8XXA Striking against or struck by other objects, initial encounter; I25.10 Atherosclerotic heart disease of native coronary artery without angina pectoris; I50.9 Heart failure, unspecified; Z86.718 Personal history of other venous thrombosis and embolism; E78.5 Hyperlipidemia, unspecified; E11.9 Type 2 diabetes mellitus without complications; Z79.4 Long term (current) use of insulin; I11.0 Hypertensive heart disease with heart failure; Z87.891 Personal history of nicotine dependence
CPT/HCPCS: 73630; 99283; A9270